=== PATIENT | female | born 1935 | race Caucasian/White ===

== ENCOUNTER 2017-03-13 12:27 | Inpatient (IN) | payer MEDICARE ==
[2017-03-13 13:38] LABS: #Eosinphils 0.2 thou/uL (0.0-0.7); #Lymphocytes 0.9 thou/uL (1.20-3.40); #Monocytes 0.8 thou/uL (0.11-0.59); #Neutrophils 5.8 thou/uL (1.40-6.50); %Basophils 0.6 % (0.0-1.0); %Eosinophils 2.1 % (0.0-10.0); %Lymphocytes 11.2 % (21.0-51.0); %Monocytes 10.6 % (0.0-10.0); Hematocrit 26.2 % (36.0-47.0); Mean Platelet Volume 6.5 fL (7.4-10.4); Red Blood Cell (RBC) Count 3.16 mill/uL (4.20-5.40); White Blood Cell (WBC) Count 7.7 thou/uL (4.8-10.8)
[2017-03-13] MEDS ORDERED: Iopamidol 370 76% 100 ML VIAL ONE (13:54)
[2017-03-13 14:02] LABS: ALT (SGPT) 22 U/L (8-55); AST (SGOT) 28 U/L (5-34); Alkaline Phosphatase 58 U/L (40-150); Anion Gap 11 mmol/L (10-20); BUN (Urea Nitrogen) 18 mg/dL (9.8-20.1); Bilirubin, Total 0.3 mg/dL (0.2-1.2); CK (CPK) 29 U/L (29-168); Calc. Creatinine Clearance 0 mL/min (70-130); Calcium 8.7 mg/dL (7.8-10.44); Carbon Dioxide 28 mmol/L (23-31); Chloride 96 mmol/L (98-107); Estimated GFR-MDRD 79; Globulin 3.3 g/dL (2.4-3.5); Lipase 23 U/L (8-78); Protein, Total 6.8 g/dL (6.0-8.3)
[2017-03-13 14:06] LABS: Troponin I 0.082 ng/mL (< 0.028)
--- NOTE | 2017-03-13 14:43 | CT ---
CT ANGIOGRAM THORAX WITH IV CONTRAST AND 3D RECONSTRUCTIONS: CT ANGIOGRAM ABDOMEN WITH IV CONTRAST AND 3D RECONSTRUCTIONS: 03/13/2017 HISTORY: Back pain and shortness of breath. The patient has pain beneath each scapula since Thursday. The pain is intermittent. COMPARISON: None available. FINDINGS: The lung apices are excluded from view utilizing this protocol. Scattered linear densities are pres ent, likely related to areas of atelectasis. There is interstitial thickening present at each lung base, with associated ground glass densities, which could be related to an element of mild pulmonary edema. The heart is enlarged, with dilatation of the atria bilaterally. A multi-lead left subclavian AICD device is noted in place. Minimal vascular calcifications are seen in the thoracic aorta with a greater degree of atherosclero tic calcification and plaque within the abdominal aorta and the iliac arteries; however, the thoraci c and abdominal aorta are normal in caliber without evidence of an aortic dissection. There is a nor mal arrangement of the great vessels, which are patent. There are severe degrees of narrowing involving the origin of the celiac and most proximal superior mesenteric arteries. The origin of the BRUNO is obscured due to atherosclerotic plaque. There is mild atherosclerotic irregularity involving the left renal artery with what appears to be a beaded appearance of the most distal aspect of the left renal artery. While this can be seen in fi bromuscular dysplasia, this may also be attributable to atherosclerotic plaque. The origin of the r ight renal artery is obscured due to dense vascular calcifications but is otherwise patent with mild degrees of atherosclerotic disease. There is irregular atherosclerotic plaque involving the infrarenal abdominal aorta, with a focal are a posteriorly at the level of the L4 vertebral body. The common iliac arteries are patent. There is a slightly lobulated contour of the liver, which can be seen with cirrhosis. The left hepa tic lobe is much larger in size compared to the right hepatic lobe. There is a calculus within the gallbladder lumen, and the gallbladder is decompressed. There are areas of what appear to be cortical scarring involving each kidney. There is a fluid dens ity inferior pole cystic lesion, left kidney, consistent with a cyst, which measures 1.9 cm. The spleen, pancreas, and bilateral adrenal glands demonstrate a normal CT appearance. There is a moderate amount of retained fecal material in the region of the ascending colon. Multilevel degenerative changes are seen in the thoracic and lumbar spine with right convex scoliosi s of the lumbar spine. There is calcification of multiple intervertebral disks involving the thorac ic, as well as the lumbar spine. No filling defects are seen in the pulmonary arteries to suggest a pulmonary embolus. There are small right and tiny left pleural effusions with associated atelectasis. IMPRESSION: 1. No CT evidence of thoracic or abdominal aortic dissection or aneurysm; however, there is promine nt atherosclerotic plaque seen within the abdominal aorta, with an area of atherosclerotic irregular ity involving the posterior aspect of the infrarenal abdominal aorta, at the level of the L4 vertebr al body, probably related to irregular atherosclerotic plaque as opposed to penetrating atheromatous ulcer. 2. No CT evidence of a pulmonary embolus. 3. Cardiomegaly with dilatation of each atrium. 4. Small right and tiny left pleural effusions. 5. Nodular contour of the right hepatic lobe, which can be seen with cirrhosis. In addition, the l eft hepatic lobe appears larger in size than the right. 6. Left renal cyst with areas of mild scarring in each kidney. 7. Severe degrees of narrowing involving the origin of the celiac and the proximal superior mesente angelo arteries. The origin of the inferior mesenteric artery is not well seen. POS: WILLIAM
[2017-03-13 14:54] LABS: Digoxin 1.61 ng/mL (0.8-2.0)
[2017-03-13] MEDS ORDERED: Nitroglycerin 2% Ointment 1 INCH/1 GM Packet ONE (15:29)
[2017-03-13] MEDS ORDERED: Nitroglycerin 0.4 MG TAB (25 Tab Bottle) PO PRN (16:15)
[2017-03-13] MEDS ORDERED: Acetaminophen 325 MG TAB PO PRN (16:17)
[2017-03-13] MEDS ORDERED: Senokot 8.6 MG TAB PO PRN (16:17)
[2017-03-13] MEDS ORDERED: Calcium Carbonate 500 MG ChewTAB PO PRN (16:17)
--- NOTE | 2017-03-13 17:08 | HP ---
DATE OF ADMISSION: 03/13/2017 PRIMARY CARE PHYSICIAN: Shivam Martinez M.D. PRIMARY INDIAN NANNY: Les Jacob M.D. CHIEF COMPLAINT: Pain between scapula of 1 day duration. HISTORY OF PRESENT ILLNESS: The patient is an 81-year-old female with coronary artery disease, stat us post stent, chronic systolic heart failure, ejection fraction 30%-35%, status post AICD, hyperten kenia, dyslipidemia, and coronary artery bypass grafting in the past, presented to the emergency room with above complaints. Over the last two days, the patient has been feeling generally weak along with dyspnea on mild to mo derate exertion. She has intermittent pain between her scapula along with some tingling mainly on t he left. She felt lightheaded, dizzy; however, denies any passing out. No palpitations reported. The pain was moderate in intensity without any exacerbation or relieving factor. She denies recent mobilization and travel. She is compliant with her medications including anticoagulation for AFIB. No heartburn, fever, or chills reported. In the emergency room, her initial vital signs showed temperature 98.8, pulse rate of 83, respiratio n 18, blood pressure 154/80 with O2 saturation 95% on room air. Her initial EKG showed paced rhythm . Her initial troponin was 0.082 with normal CK-MB. Her CT dissection protocol was performed that showed atherosclerotic arthrosclerosis without any dissection or aneurysm. PAST MEDICAL HISTORY: 1. Chronic systolic heart failure, ejection fraction 30%-35%, status post AICD. 2. Coronary artery disease, status post stent and CABG. 3. Hypertension. 4. Dyslipidemia. 5. Chronic atrial fibrillation. PAST SURGICAL HISTORY: 1. Tonsillectomy. 2. Coronary artery bypass grafting. ALLERGIES: Patient is allergic to CIPROFLOXACIN, LISINOPRIL, and NAPROXEN. CURRENT HOME MEDICATIONS: According to the list provided; Xarelto 20 mg daily at 6 p.m., Coreg 6.25 mg b.i.d., Bumex 2 mg at 3 p.m., digoxin 125 mcg daily, amiodarone 200 mg daily, potassium chloride 10 mEq daily, coenzyme Q10 200 mg daily, pravastatin 40 at bedtime, Zetia 10 mg at bedtime, levothy roxine 50 mcg daily, valsartan which was started [address] Cecil at 40 mg at bedtime. FAMILY HISTORY: Positive for heart disease in young age. SOCIAL HISTORY: She is , lives with her family. Denies any current use of tobacco, alcohol or drug use. REVIEW OF SYSTEMS: The following complete review of systems was negative, unless otherwise mentione d in the HPI or below: Constitutional: Weight loss or gain, ability to conduct usual activities. Skin: Rash, itching. Eyes: Double vision, pain. ENT/Mouth: Nose bleeding, neck stiffness, pain, tenderness. Cardiovascular: Palpitations, dyspnea on exertion, orthopnea. Respiratory: Shortness of breath, wheezing, cough, hemoptysis, fever or night sweats. Gastrointestinal: Poor appetite, abdominal pain, heartburn, nausea, vomiting, constipation, or diar jamia. Genitourinary: Urgency, frequency, dysuria, nocturia. Musculoskeletal: Pain, swelling. Neurologic/Psychiatric: Anxiety, depression. Allergy/Immunologic: Skin rash, bleeding tendency. PHYSICAL EXAMINATION: VITAL SIGNS: As discussed above. GENERAL: An 81-year-old female in no apparent distress. HEENT: Head is atraumatic, normocephalic. Sclerae are anicteric. Moist mucous membrane, no oral l esion. NECK: Supple, no JVD, no carotid bruit. LUNGS: Clear to auscultation bilaterally. No wheezing or rales. There was no reproducible tendern ess between her scapula. HEART: S1 and S2 present. Regular rate and rhythm. No murmurs, rubs or gallops. ABDOMEN: Soft, nontender, bowel sounds present. EXTREMITIES: No edema or calf tenderness. NEUROLOGIC: Grossly nonfocal, moves all four extremities. PSYCHIATRY: Alert, awake, oriented x3. SKIN: Warm and dry. LYMPH NODES: No palpable lymph nodes in the neck. PERIPHERAL VASCULAR: Radial pulses palpable bilaterally. MUSCULOSKELETAL: No joint swelling or tenderness. LABORATORY DATA AND IMAGIN. Troponins as discussed above. Digoxin level 1.61. Sodium was 131, BUN was 18, and creatinine 0 .71. 2. CBC showed WBC 7.7 with hemoglobin 8. Her hemoglobin in [address] dissection protocol by my review as discussed above. 4. EKG by my review as discussed above. IMPRESSION: 1. Chest discomfort/anginal equivalent. The patient had dyspnea on mild to moderate exertion yeste rday. She also has abnormal troponins. She has history of myocardial infarction, coronary bypass a nd stent placed in the past. We will monitor the patient overnight. Cardiology will be consulted. She will be kept n.p.o. past midnight. 2. Chronic atrial fibrillation. Anticoagulation will be resumed. Digoxin level is therapeutic. W e will continue beta blockers and digoxin for rate control. 3. Coronary artery disease, status post coronary artery bypass graft and stent placement. 4. Chronic systolic heart failure, ejection fraction 30%-35% range, status post automatic implantab le cardioverter defibrillator. We will continue beta blockers, losartan. 5. Hypothyroidism. We will continue levothyroxine. 6. SAW INHIBITOR allergy. 7. Anemia. It is unclear what her baseline is. Primary care physician advised to follow. 8. Hyponatremia. Again, baseline labs are unclear. Primary care physician advised to follow proba paul secondary to diuretics. 9. Elevated troponins, probably secondary to #1. 10. Degenerative joint disease. 11. Hyperlipidemia. We will continue statins. Plan of care was discussed with the patient. She stated understanding. CODE STATUS: FULL CODE. SURROGATE DECISION MAKER: The patient makes her own decisions.
[2017-03-13 17:18] VITALS: BMI 19.9
[2017-03-13] MEDS ORDERED: hydrALAZINE 20 MG/ML VIAL SLOW IVP PRN (17:49)
[2017-03-13] MEDS ORDERED: Rivaroxaban 10 MG TAB PO SCH (18:00)
[2017-03-13 20:13] LABS: Troponin I 0.095 ng/mL (< 0.028)
[2017-03-13] MEDS ORDERED: Ubidecarenone 50 MG CAP PO SCH (21:00)
[2017-03-13] MEDS: Atorvastatin Calcium 10 MG TAB PO SCH (22:52)
[2017-03-13] MEDS: Carvedilol 6.25 MG TAB PO SCH (22:54)
[2017-03-13] MEDS: Famotidine 20 MG TAB PO SCH (22:56)
[2017-03-13] MEDS: Ezetimibe 10 MG TAB PO SCH (22:56)
[2017-03-13] MEDS: Valsartan 80 MG TAB PO SCH (22:58)
[2017-03-14] MEDS ORDERED: diphenhydrAMINE 25 MG CAP PO SCH (02:00)
[2017-03-14] MEDS: Levothyroxine Sodium 50 MCG TAB PO SCH (05:20)
[2017-03-14] MEDS: Digoxin 0.125 MG TAB PO SCH (09:25)
[2017-03-14] MEDS: Carvedilol 6.25 MG TAB PO SCH ×2 (09:25→21:36)
[2017-03-14] MEDS: Aspirin 81 mg Enteric Coated Tablet PO SCH (09:25)
[2017-03-14] MEDS: Ubidecarenone 50 MG CAP PO SCH (09:25)
[2017-03-14] MEDS: Famotidine 20 MG TAB PO SCH ×2 (09:26→21:36)
--- NOTE | 2017-03-14 10:50 | PDOC.PN ---
- Subjective Encounter Start Date: 03/14/17 Encounter Start Time: 07:45 Subjective: no chest pain or sob at rest -: has exertional sob - Objective Resuscitation Status: Resuscitation Status FULL:Full Resuscitation MAR Reviewed: Yes Vital Signs & Weight: Vital Signs (12 hours) Temp Pulse Resp BP BP Pulse Ox 03/14/17 09:25 74 124/58 L 03/14/17 08:00 99.0 F 74 18 03/14/17 07:23 99.0 F 74 18 124/58 L 92 L 03/14/17 04:10 99.8 F H 64 16 109/53 L 92 L 03/13/17 23:13 99.3 F 61 18 114/53 L 94 L 03/13/17 22:56 99.3 F 61 18 Weight Weight 119 lb 11.2 oz I&O: 03/13/17 03/14/17 03/15/17 06:59 06:59 06:59 Intake Total 1170 Output Total 1600 Balance -430 Result Diagrams: 03/13/17 13:29 03/13/17 13:29 Phys Exam - Physical Examination HEENT: PERRLA, moist MMs Neck: no JVD, supple Respiratory: no wheezing basal rales Cardiovascular: RRR, no rub Gastrointestinal: soft, non-tender, positive bowel sounds Musculoskeletal: no edema, pulses present Neurological: non-focal, moves all 4 limbs Psychiatric: A&O x 3 Dx/Plan (1) CHF exacerbation Code(s): I50.9 - HEART FAILURE, UNSPECIFIED Status: Acute Comment: await echo results done on from office (2) Demand ischemia of myocardium Code(s): I24.8 - OTHER FORMS OF ACUTE ISCHEMIC HEART DISEASE Status: Acute (3) CAD (coronary artery disease) Code(s): I25.10 - ATHSCL HEART DISEASE OF [place] CORONARY ARTERY W/O ANG PCTRS Status: Chronic Qualifiers: Coronary Disease-Associated Artery/Lesion type: bypass graft [place] vs. transplanted heart: [place] heart Associated angina: without angina Qualified Code(s): I25.810 - Atherosclerosis of coronary artery bypass graft(s) without angina pectoris (4) HTN (hypertension) Code(s): I10 - ESSENTIAL (PRIMARY) HYPERTENSION Status: Chronic Qualifiers: Hypertension type: essential hypertension Qualified Code(s): I10 - Essential (primary) hypertension (5) Dyslipidemia Code(s): E78.5 - HYPERLIPIDEMIA, UNSPECIFIED Status: Chronic (6) Afib Code(s): I48.91 - UNSPECIFIED ATRIAL FIBRILLATION Status: Chronic (7) Chronic anemia Code(s): D64.9 - ANEMIA, UNSPECIFIED Status: Chronic - Plan will need gentle diuresis -: switch pt to inpt if ok with -: is on xarelto with Hb of 8g, add feso4 -: dig levels are high for her age, await cardio opinion -: indet trop likely due to chf exacerbation with exertional sob * . Review of Systems - Medications/Allergies Allergies/Adverse Reactions: Allergies Allergy/AdvReac Type Severity Reaction Status Date / Time ciprofloxacin [From Cipro] Allergy Verified 02/07/13 08:17 lisinopril Allergy Verified 10/27/13 14:33 naproxen [From Naprosyn] Allergy Verified 10/27/13 14:33 Medications: Current Medications Acetaminophen (Tylenol) 650 mg PO Q4H PRN PRN Reason: Headache/Fever or Pain Amiodarone HCl (Cordarone) 200 mg PO DAILY [facility] Last Admin: 03/14/17 09:24 Dose: 200 mg Aspirin (Ecotrin) 81 mg PO DAILY [facility] Last Admin: 03/14/17 09:25 Dose: 81 mg Atorvastatin Calcium (Lipitor) 10 mg PO HS [facility] Last Admin: 03/13/17 22:52 Dose: Not Given Bumetanide (Bumex) 1 mg PO 1400 [facility] Calcium Carbonate (Tums) 1,000 mg PO Q4H PRN PRN Reason: Heartburn or Indigestion Carvedilol (Coreg) 6.25 mg PO BID [facility] Last Admin: 03/14/17 09:25 Dose: 6.25 mg Coenzyme Q10 (Coenzyme Q10) 200 mg PO QAM [facility] Last Admin: 03/14/17 09:25 Dose: 200 mg Digoxin (Lanoxin) 0.125 mg PO DAILY [facility] Last Admin: 03/14/17 09:25 Dose: 0.125 mg Ezetimibe (Zetia) 10 mg PO HS [facility] Last Admin: 03/13/17 22:56 Dose: 10 mg Famotidine (Pepcid) 20 mg PO BID [facility] Last Admin: 03/14/17 09:26 Dose: 20 mg Hydralazine HCl (Apresoline) 5 mg SLOW IVP Q4H PRN PRN Reason: SBP Greater Than 180 Levothyroxine Sodium (Synthroid) 50 mcg PO 0600 [facility] Last Admin: 03/14/17 05:20 Dose: 50 mcg Nitroglycerin (Nitrostat) 0.4 mg PO Q5MIN PRN PRN Reason: Chest Pain Senna (Senokot) 2 tab PO HSPRN PRN PRN Reason: Constipation Sodium Chloride (Flush - Normal Saline) 10 ml IVF PRN PRN PRN Reason: Saline Flush Valsartan (Diovan) 40 mg PO HS [facility] Last Admin: 03/13/17 22:58 Dose: 40 mg
[2017-03-14] MEDS ORDERED: Furosemide 40 MG/4 ML VIAL SLOW IVP SCH (13:30)
--- NOTE | 2017-03-14 14:12 | CON ---
DATE OF CONSULTATION: 03/14/2017 CARDIOLOGY CONSULTATION REASON FOR CONSULTATION: Chest pain. PRIMARY MARKETING DATABASE ANALYST: Les Jacob M.D. HISTORY OF PRESENT ILLNESS: Ms. Agudelo is a very pleasant 81-year-old black female who comes to [facility] for evaluation of chest pain. She was actually going to a football game here in [facility] where she is from and she just felt tired and really weak. She suddenly started having pain in between her scapulas. She took one dose of ibuprofen. The pain got a little bit better, n ever really went away and the next afternoon, she went back to her house and kept feeling really tir ed and weak, so decided to call 911 who brought her into the hospital for further evaluation. Her t roponins have been in the indeterminate range. Her pain is completely gone. She does have a histor y of coronary disease with bypass in the past and recent stenting. She is currently doing much bett er. She denies any chest pain at that time. Her breathing, she states, is better; however, she has a little bit harder time breathing when she lays flat on her back, but not really significant when she is on room air, her sats go from 96, sitting up to 93 and 92 lying flat. Her blood pressure whe n EMS got to her was 200/98, but it since gotten much better. A recent echocardiogram in the office shows an EF of 45%-50%. PAST MEDICAL HISTORY: 1. Ischemic cardiomyopathy with an EF of 45-50%. 2. Status post AICD. 3. Coronary artery disease status post bypass and stenting in the past. 4. Hypertension. 5. Hyperlipidemia. 6. Chronic atrial fibrillation. PAST SURGICAL HISTORY: 1. Tonsillectomy. 2. Coronary artery bypass grafting as above. 3. Stent placement as above. OUTPATIENT MEDICATIONS: Include, 1. Xarelto 20 mg a day. 2. Coreg 6.25 mg b.i.d. 3. Bumex 2 mg in the afternoon. 4. Digoxin 125 mcg a day. 5. Amiodarone 200 mg. 6. Potassium chloride 10 mEq a day. 7. Coenzyme Q10. 8. Pravastatin 40 mg a day. 9. Zetia 10 mg a day. 10. Levothyroxine 50 mcg a day. 11. Valsartan 40 mg at bedtime. FAMILY HISTORY: Heart disease on family members. SOCIAL HISTORY: No alcohol, tobacco or drugs. REVIEW OF SYSTEMS: Twelve point review of systems was done and is all negative unless stated in the history of present illness. ALLERGIES: CIPRO, LISINOPRIL, and NAPROXEN. PHYSICAL EXAMINATION: VITAL SIGNS: Temperature 99, pulse 64, respiration rate 16, satting 91% on room air, and blood pres sure 121/60. GENERAL: Awake, alert, oriented x3, in no distress. HEENT: Normocephalic, atraumatic. NECK: Supple. LUNGS: Clear. CARDIOVASCULAR: S1, S2, no S3 or S4. HEART: Regular. ABDOMEN: Soft, positive bowel sounds. EXTREMITIES: No edema. SKIN: Warm and dry. LABORATORY WORK: Reviewed. White count of 7, hemoglobin of 8, hematocrit of 26, platelet count of 193. Chemistries: Sodium 131, potassium is 4.4, BUN and creatinine are normal. Troponin was 0.08, 0.10, 0.09 with a BNP of 1749, lipase of 23, albumin of 3.5. Digoxin level was 1.61. CT per dissection protocol showed no evidence of dissection. There was some atherosclerotic plaque in the aorta and there was some pleural effusions. No evidence of PE. EKG shows AV paced rhythm. ASSESSMENT AND PLAN: 1. Acute on chronic systolic heart failure. She is probably in little bit of heart failure with th e weakness and her increased work to breathe when lying flat, so we will give one dose of IV Lasix f or this is probably going to be enough. She is comfortable on room air. 2. Chest pain, actually interscapular pain. We will screen for ischemia with a nuclear MPI. Adeno sine scan to be done. 3. Coronary artery disease. No evidence of acute coronary syndrome. Her troponins are in the inde terminate range. As above. Thank you for letting us to participate in the care of your patient. Further recommendations per marlene means of stress test.
[2017-03-14] MEDS ORDERED: ADENOSINE 60 MG/20 ML VIAL ONE (15:53)
[2017-03-14] MEDS: Ferrous Sulfate 325 MG TAB PO SCH (16:35)
[2017-03-14] MEDS: Bumetanide 1 MG TAB PO SCH (16:35)
--- NOTE | 2017-03-14 16:46 | NM ---
MYOCARDIAL PERFUSION SCAN WITH SPECT IMAGIN03/14/17 HISTORY: Chest pain. Examination is performed using 28.5 millicuries 99m technetium Sestamibi on the stress and 9.4 danis curies on the resting images. This shows a normal distribution of the radiopharmaceutical without si gns of ischemia or scar. WALL MOTION: There is symmetric contractility to the ventricle. LEFT VENTRICULAR EJECTION FRACTION: The calculated left ventricular ejection fraction is 72%. IMPRESSION: Unremarkable myocardial perfusion scan. POS: WILLIAM
[2017-03-14] MEDS: Valsartan 80 MG TAB PO SCH (21:37)
[2017-03-14] MEDS: Ezetimibe 10 MG TAB PO SCH (21:37)
[2017-03-14] MEDS: Atorvastatin Calcium 10 MG TAB PO SCH (21:37)
[2017-03-15] MEDS: Levothyroxine Sodium 50 MCG TAB PO SCH (05:46)
[2017-03-15 07:58] LABS: #Basophils 0.1 thou/uL (0.0-0.2); #Eosinphils 0.1 thou/uL (0.0-0.7); #Lymphocytes 1.2 thou/uL (1.20-3.40); #Neutrophils 5.6 thou/uL (1.40-6.50); %Basophils 0.6 % (0.0-1.0); %Eosinophils 1.4 % (0.0-10.0); %Lymphocytes 15.4 % (21.0-51.0); %Monocytes 12.7 % (0.0-10.0); Hematocrit 24.6 % (36.0-47.0); Mean Platelet Volume 6.8 fL (7.4-10.4); Red Blood Cell (RBC) Count 2.99 mill/uL (4.20-5.40); White Blood Cell (WBC) Count 8.1 thou/uL (4.8-10.8)
[2017-03-15] MEDS ORDERED: Furosemide 20 MG/2 ML VIAL SLOW IVP SCH (08:00)
[2017-03-15 08:14] LABS: Anion Gap 10 mmol/L (10-20); BUN (Urea Nitrogen) 19 mg/dL (9.8-20.1); Calc. Creatinine Clearance 42 mL/min (70-130); Calcium 8.2 mg/dL (7.8-10.44); Carbon Dioxide 29 mmol/L (23-31); Chloride 100 mmol/L (98-107); Estimated GFR-MDRD 68
[2017-03-15] MEDS: Potassium Chloride 20 MEQ TAB PO SCH ×2 (09:08→17:02)
[2017-03-15] MEDS: Carvedilol 6.25 MG TAB PO SCH ×2 (09:08→20:57)
[2017-03-15] MEDS: Aspirin 81 mg Enteric Coated Tablet PO SCH (09:08)
[2017-03-15] MEDS: Ferrous Sulfate 325 MG TAB PO SCH ×2 (09:08→17:02)
[2017-03-15] MEDS: Ubidecarenone 50 MG CAP PO SCH (09:09)
[2017-03-15] MEDS: Digoxin 0.125 MG TAB PO SCH (09:09)
[2017-03-15] MEDS: Famotidine 20 MG TAB PO SCH ×2 (09:10→20:57)
--- NOTE | 2017-03-15 10:05 | PDOC.PN ---
- Subjective Encounter Start Date: 03/15/17 Encounter Start Time: 09:15 Subjective: no chest pain or sob -: feels better after lasix - Objective Resuscitation Status: Resuscitation Status FULL:Full Resuscitation MAR Reviewed: Yes Vital Signs & Weight: Vital Signs (12 hours) Temp Pulse Resp BP BP Pulse Ox 03/15/17 09:09 62 03/15/17 09:08 145/67 H 03/15/17 08:07 98.5 F 62 16 145/67 H 95 03/15/17 04:00 97.8 F 72 16 126/59 L 92 L Weight Weight 112 lb 5 oz I&O: 03/14/17 03/15/17 03/16/17 06:59 06:59 06:59 Intake Total 1170 1440 Output Total 1600 350 Balance -430 1090 Result Diagrams: 03/15/17 07:27 03/15/17 07:27 Phys Exam - Physical Examination HEENT: PERRLA, moist MMs Neck: no JVD, supple Respiratory: no wheezing, no rales Cardiovascular: RRR, no significant murmur Gastrointestinal: soft, non-tender, positive bowel sounds Musculoskeletal: no edema, pulses present Neurological: non-focal, moves all 4 limbs Psychiatric: A&O x 3 Dx/Plan (1) CHF exacerbation Code(s): I50.9 - HEART FAILURE, UNSPECIFIED Status: Acute Comment: ef of 45 % on last echo 02/2017 (2) Demand ischemia of myocardium Code(s): I24.8 - OTHER FORMS OF ACUTE ISCHEMIC HEART DISEASE Status: Acute (3) CAD (coronary artery disease) Code(s): I25.10 - ATHSCL HEART DISEASE OF [place] CORONARY ARTERY W/O ANG PCTRS Status: Chronic Qualifiers: Coronary Disease-Associated Artery/Lesion type: bypass graft [place] vs. transplanted heart: [place] heart Associated angina: without angina Qualified Code(s): I25.810 - Atherosclerosis of coronary artery bypass graft(s) without angina pectoris (4) HTN (hypertension) Code(s): I10 - ESSENTIAL (PRIMARY) HYPERTENSION Status: Chronic Qualifiers: Hypertension type: essential hypertension Qualified Code(s): I10 - Essential (primary) hypertension (5) Dyslipidemia Code(s): E78.5 - HYPERLIPIDEMIA, UNSPECIFIED Status: Chronic (6) Afib Code(s): I48.91 - UNSPECIFIED ATRIAL FIBRILLATION Status: Chronic (7) Chronic anemia Code(s): D64.9 - ANEMIA, UNSPECIFIED Status: Chronic - Plan stress test is -ve for reversible ischemia -: gentle diuresis -: dc plan in am -: she will need outpt GI appt with Hb around 8 and being on xarelto -: to amb as tolerated * . Review of Systems - Medications/Allergies Allergies/Adverse Reactions: Allergies Allergy/AdvReac Type Severity Reaction Status Date / Time ciprofloxacin [From Cipro] Allergy Verified 02/07/13 08:17 lisinopril Allergy Verified 10/27/13 14:33 naproxen [From Naprosyn] Allergy Verified 10/27/13 14:33 Medications: Current Medications Acetaminophen (Tylenol) 650 mg PO Q4H PRN PRN Reason: Headache/Fever or Pain Amiodarone HCl (Cordarone) 200 mg PO DAILY [facility] Last Admin: 03/15/17 09:09 Dose: 200 mg Aspirin (Ecotrin) 81 mg PO DAILY [facility] Last Admin: 03/15/17 09:08 Dose: 81 mg Atorvastatin Calcium (Lipitor) 10 mg PO HS [facility] Last Admin: 03/14/17 21:37 Dose: 10 mg Bumetanide (Bumex) 1 mg PO 1400 [facility] Last Admin: 03/14/17 16:35 Dose: 1 mg Calcium Carbonate (Tums) 1,000 mg PO Q4H PRN PRN Reason: Heartburn or Indigestion Carvedilol (Coreg) 6.25 mg PO BID [facility] Last Admin: 03/15/17 09:08 Dose: 6.25 mg Coenzyme Q10 (Coenzyme Q10) 200 mg PO QAM [facility] Last Admin: 03/15/17 09:09 Dose: 200 mg Digoxin (Lanoxin) 0.125 mg PO DAILY [facility] Last Admin: 03/15/17 09:09 Dose: 0.125 mg Ezetimibe (Zetia) 10 mg PO HS [facility] Last Admin: 03/14/17 21:37 Dose: 10 mg Famotidine (Pepcid) 20 mg PO BID [facility] Last Admin: 03/15/17 09:10 Dose: 20 mg Ferrous Sulfate (Feosol) 325 mg PO BID[facility] Last Admin: 03/15/17 09:08 Dose: 325 mg Hydralazine HCl (Apresoline) 5 mg SLOW IVP Q4H PRN PRN Reason: SBP Greater Than 180 Levothyroxine Sodium (Synthroid) 50 mcg PO 0600 [facility] Last Admin: 03/15/17 05:46 Dose: 50 mcg Nitroglycerin (Nitrostat) 0.4 mg PO Q5MIN PRN PRN Reason: Chest Pain Potassium Chloride (K-Dur) 40 meq PO BID-[facility] Last Admin: 03/15/17 09:08 Dose: 40 meq Senna (Senokot) 2 tab PO HSPRN PRN PRN Reason: Constipation Sodium Chloride (Flush - Normal Saline) 10 ml IVF PRN PRN PRN Reason: Saline Flush Valsartan (Diovan) [address] [facility] Last Admin: 03/14/17 21:37 Dose: 40 mg
[2017-03-15] MEDS: Bumetanide 1 MG TAB PO SCH (13:54)
--- NOTE | 2017-03-15 17:28 | PDOC.CTH ---
Cardiology Progress Note - Subjective She is doing well. Her breathing is back to baseline. - Objective Vital Signs Temp Pulse Resp BP BP Pulse Ox 03/15/17 15:05 97.5 F L 63 24 H 117/52 L 97 03/15/17 12:00 99.0 F 65 24 H 148/63 H 95 03/15/17 09:09 62 03/15/17 09:08 145/67 H 03/15/17 08:07 99.0 F 65 24 H 145/67 H 95 Weight 112 lb 5 oz 03/14/17 03/15/17 03/16/17 06:59 06:59 06:59 Intake Total 1170 1440 Output Total 1600 350 Balance -430 1090 - Physical Examination General/Neuro: alert & oriented x3, NAD Neck: no JVD present Lungs: CTA, unlabored respirations Heart: RRR Abdomen: NT/ND Extremities: other: (no edema.) - Telemetry Telemetry Rhythm: AV paced. - Labs Result Diagrams: 03/15/17 07:27 03/15/17 07:27 Troponin/CKMB CK-MB (CK-2) 1.5 ng/mL (0-6.6) 03/13/17 13:29 Troponin I 0.095 ng/mL (< 0.028) H 03/13/17 19:34 - Assessment/Plan 1. Acute on chronic systolic heart failure. improved. 2. Chest pain 3. CAD. PLAN: - Normal MPI, normal LV function. - No new recs. - Home tomorrow.
[2017-03-15] MEDS: Ezetimibe 10 MG TAB PO SCH (20:57)
[2017-03-15] MEDS: Valsartan 80 MG TAB PO SCH (20:57)
[2017-03-15] MEDS: Atorvastatin Calcium 10 MG TAB PO SCH (20:57)
--- NOTE | 2017-03-15 23:43 | CON ---
DATE OF CONSULTATION: 03/15/2017 REFERRING PHYSICIAN: Wilfrido Salazar M.D. REASON FOR CONSULTATION: Anemia with a drop in H\T\H. HISTORY OF PRESENT ILLNESS: Ms. Kalie Agudelo is a very fragile-looking 81-year-old fem kapil admitted to the hospital with pain between the shoulder blade area. She has been seen by Dr. Hallie green since admission and he felt she has mild heart failure and was advised to try IV Lasix. At the present time, she appears very comfortable. 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 The patient had been seeing Dr. Jacob for 20 years or so. The patient's re [facility] doctor is in [place]. The patient came to the ER because of pain between the shou lder blade area. Apparently, she has had the pain off and on for several months or even years. The pain got worse yesterday and she came to the ER. She had a chest CAT scan to rule out any dissecti on, which was negative. The patient's symptoms have resolved. She had no pain between the shoulder blade area. She has multiple symptoms which are somewhat difficult to interpret. She has had this burning pain to scalp area and also over the back off and on. She has seen a tactical air control party in the past and was of advised some shampoo, did not help her. The patient also complains of pain over the shoulder blade area and both . The patient's admitting hemoglobin is slightly low. The CBC o n admission showed WBC 7700, hemoglobin is 8, which is slightly dropped to 7.8 today, hematocrit 26 .2, dropping to 24.6. Going over the [employer] from before, the patient has had mild anemia in the p ast also. A CBC in 02/10/2013 showed hemoglobin at 10.2 and later on dropping to 9.5. In 2013, it was back to normal at 13.4; today, it is about 7.8. Although she has anemia since admission, she baxter s no history of any GI bleeding. Her bowel movements are regular. No history of hematochezia or an y melena. No history of nosebleed, no history of hematuria or any bleeding from the gums, etc. She had never been told of anemia from before. The patient had a colonoscopy in 04/2016 in [place]. he was told to have hemorrhoids and nothing else was wrong. The patient never had an EGD. However, she had no upper GI symptoms. She has no significant abdominal pain, nausea, or vomiting, no dysph agia, no heartburn or indigestion. She has no other relevant history. MEDICAL ILLNESSES: 1. Coronary artery disease, status post stent placement. 2. Coronary artery bypass graft. 3. Status post AICD placement. 4. Ischemic cardiomyopathy, systolic heart failure with an ejection fraction of 30%-35%. 5. Hypertension. 6. Hyperlipidemia. 7. Chronic atrial fibrillation. SURGERIES: 1. Tonsillectomy. 2. Coronary artery bypass graft. 3. Stent placement. ALLERGIES: CIPRO, LISINOPRIL, and NAPROXEN. SOCIAL HISTORY: The patient is a retired nurse. She is . She does not smoke or drink alcoh ol. FAMILY HISTORY: Heart disease. MEDICATIONS: List reviewed. Xarelto, Coreg, Bumex. She is also on digoxin, amiodarone, potassium chloride, coenzyme, pravastatin, Zetia, levothyroxine, valsartan. REVIEW OF SYSTEMS: A 10-point system reviewed. Constitutional: No history of fever. No weight lo ss. Energy level and appetite have been pretty good. ORTHODONTIST [employer]: No history of TIA, no syncope, no chron ic headache. Respiratory System: No history of chronic cough, hemoptysis, dyspnea. Cardiovascular System: No chest pain, no palpitation, no dyspnea, orthopnea, or PND. Gastrointestinal: No abdom inal pain, no nausea, no vomiting, no hematochezia, no melena, no dysphagia. Genitourinary: No hem aturia or dysuria. Musculoskeletal: Has some back pain and also pain in the extremities. Neuroend ocrine: Unremarkable. Hematologic: Unremarkable. Neuropsychiatry: Unremarkable. PHYSICAL EXAMINATION: GENERAL: Revealed a very thin built female, appears very comfortable. She is awake, aler t, oriented to time, place, and person. HEENT: Her conjunctivae are clear. VITAL SIGNS: Temperature 98.5 degrees Fahrenheit, pulse is 62, blood pressure 143/67. NECK: Supple. No adenitis or thyromegaly noted. CARDIOVASCULAR: First and second heart sounds are normal. LUNGS: Clear to auscultation. ABDOMEN: Soft to palpate. No organomegaly. No tenderness. No masses. EXTREMITIES: Reveal no edema. LABORATORY DATA: Yesterday, WBC 7700, hemoglobin 8, today 7.2, which is a very small drop, hematocr it 26.2, dropping to 24.6, MCV 82.4, platelet 199,000, polymorphs 69, lymphocytes 15. Her last hemo globin on the [facility] on 10/28/2013 was completely normal with normal hemoglobin and hematocrit. [facility] chemistries: Sodium 135, potassium 3.7, chloride 100, bicarbonate 29, BUN is 19, creatinine 0. 81, glucose is 98, bilirubin 0.3, AST 28, ALT 22, alkaline phosphatase 58, globulin 3.3. CPK is 29. CLINICAL IMPRESSION: 1. An 81-year-old female with pain over the shoulder blade area and had negative CAT scan for aortic dissection. She has been seen by Dr. Christopher and he felt she was in early heart failure. At the present time, her symptoms are normal. 2. Anemia which is normocytic and etiology unclear. She has normal hemoglobin and hematocrit in 20 14. No history of any GI bleeding. She had a colonoscopy in [place] on 05/20/2016 and was totally normal. The anemia is likely normocytic. She has no history of hematochezia, melena, or hematuria. 3. Ischemic cardiomyopathy, congestive heart failure. 4. Status post AICD placement. 5. Hypertension. 6. Hyperlipidemia. 7. Hypothyroidism. 8. Negative colonoscopy. RECOMMENDATIONS: Obtain stool for guaiac. If the stool guaiac comes positive, we may consider kaleb g studies. Anyway, she had a negative colonoscopy less than 1 year ago and she does not need another colonoscopy. I will probably perform an EGD tomorrow.
[2017-03-16 05:13] LABS: #Basophils 0.1 thou/uL (0.0-0.2); #Eosinphils 0.3 thou/uL (0.0-0.7); #Lymphocytes 1.8 thou/uL (1.20-3.40); #Monocytes 1.1 thou/uL (0.11-0.59); #Neutrophils 6.1 thou/uL (1.40-6.50); %Basophils 0.7 % (0.0-1.0); %Eosinophils 2.9 % (0.0-10.0); %Monocytes 11.4 % (0.0-10.0); Hematocrit 25.6 % (36.0-47.0); Mean Platelet Volume 6.8 fL (7.4-10.4); White Blood Cell (WBC) Count 9.2 thou/uL (4.8-10.8)
[2017-03-16 05:37] LABS: Anion Gap 9 mmol/L (10-20); BUN (Urea Nitrogen) 19 mg/dL (9.8-20.1); Calc. Creatinine Clearance 38 mL/min (70-130); Calcium 8.4 mg/dL (7.8-10.44); Carbon Dioxide 29 mmol/L (23-31); Chloride 100 mmol/L (98-107); Estimated GFR-MDRD 60
[2017-03-16] MEDS: Levothyroxine Sodium 50 MCG TAB PO SCH (05:59)
[2017-03-16] MEDS: Famotidine 20 MG TAB PO SCH (09:13)
[2017-03-16] MEDS: Digoxin 0.125 MG TAB PO SCH (09:14)
[2017-03-16] MEDS: Carvedilol 6.25 MG TAB PO SCH (09:14)
[2017-03-16] MEDS: Potassium Chloride 20 MEQ TAB PO SCH ×2 (09:18→17:20)
[2017-03-16] MEDS: Ferrous Sulfate 325 MG TAB PO SCH ×2 (09:18→17:20)
--- NOTE | 2017-03-16 10:21 | PDOC.PN ---
- Subjective Encounter Start Date: 03/16/17 Encounter Start Time: 09:15 Subjective: no sob, feels better -: had itching last night - Objective Resuscitation Status: Resuscitation Status FULL:Full Resuscitation MAR Reviewed: Yes Vital Signs & Weight: Vital Signs (12 hours) Temp Pulse Resp BP BP BP Pulse Ox 03/16/17 09:14 72 172/71 H 03/16/17 08:00 97.5 F L 72 16 98 03/16/17 07:45 97.5 F L 72 16 172/71 H 98 03/16/17 04:00 98.6 F 64 16 141/63 H 95 03/16/17 00:00 65 18 132/68 97 Weight Weight 107 lb I&O: 03/15/17 03/16/17 03/17/17 06:59 06:59 06:59 Intake Total 1440 1260 Output Total 350 900 Balance 1090 360 Result Diagrams: 03/16/17 04:11 03/16/17 04:11 Phys Exam - Physical Examination HEENT: PERRLA, moist MMs Neck: no JVD, supple Respiratory: no wheezing, no rales Cardiovascular: RRR, no significant murmur Gastrointestinal: soft, non-tender, positive bowel sounds Musculoskeletal: no edema, pulses present Neurological: non-focal, moves all 4 limbs Psychiatric: A&O x 3 Dx/Plan (1) CHF exacerbation Code(s): I50.9 - HEART FAILURE, UNSPECIFIED Status: Acute Comment: ef of 45 % on last echo 02/2017 (2) Demand ischemia of myocardium Code(s): I24.8 - OTHER FORMS OF ACUTE ISCHEMIC HEART DISEASE Status: Acute (3) CAD (coronary artery disease) Code(s): I25.10 - ATHSCL HEART DISEASE OF [place] CORONARY ARTERY W/O ANG PCTRS Status: Chronic Qualifiers: Coronary Disease-Associated Artery/Lesion type: bypass graft [place] vs. transplanted heart: [place] heart Associated angina: without angina Qualified Code(s): I25.810 - Atherosclerosis of coronary artery bypass graft(s) without angina pectoris (4) HTN (hypertension) Code(s): I10 - ESSENTIAL (PRIMARY) HYPERTENSION Status: Chronic Qualifiers: Hypertension type: essential hypertension Qualified Code(s): I10 - Essential (primary) hypertension (5) Dyslipidemia Code(s): E78.5 - HYPERLIPIDEMIA, UNSPECIFIED Status: Chronic (6) Afib Code(s): I48.91 - UNSPECIFIED ATRIAL FIBRILLATION Status: Chronic (7) Chronic anemia Code(s): D64.9 - ANEMIA, UNSPECIFIED Status: Chronic - Plan for EGD today, Hb around 7.8g -: oral slow iron, doesn't like current iron-upsets her stm -: may dc home with HH if EGD is ok -: oral asp and xarelto per GI advice * . Review of Systems - Medications/Allergies Allergies/Adverse Reactions: Allergies Allergy/AdvReac Type Severity Reaction Status Date / Time ciprofloxacin [From Cipro] Allergy Verified 02/07/13 08:17 lisinopril Allergy Verified 10/27/13 14:33 naproxen [From Naprosyn] Allergy Verified 10/27/13 14:33 Medications: Current Medications Acetaminophen (Tylenol) 650 mg PO Q4H PRN PRN Reason: Headache/Fever or Pain Amiodarone HCl (Cordarone) 200 mg PO DAILY [facility] Last Admin: 03/16/17 09:14 Dose: 200 mg Aspirin (Ecotrin) 81 mg PO DAILY [facility] Last Admin: 03/15/17 09:08 Dose: 81 mg Atorvastatin Calcium (Lipitor) 10 mg PO HS [facility] Last Admin: 03/15/17 20:57 Dose: 10 mg Bumetanide (Bumex) 1 mg PO 1400 [facility] Last Admin: 03/15/17 13:54 Dose: 1 mg Calcium Carbonate (Tums) 1,000 mg PO Q4H PRN PRN Reason: Heartburn or Indigestion Carvedilol (Coreg) 6.25 mg PO BID [facility] Last Admin: 03/16/17 09:14 Dose: 6.25 mg Coenzyme Q10 (Coenzyme Q10) 200 mg PO QAM [facility] Last Admin: 03/15/17 09:09 Dose: 200 mg Digoxin (Lanoxin) 0.125 mg PO DAILY [facility] Last Admin: 03/16/17 09:14 Dose: 0.125 mg Ezetimibe (Zetia) 10 mg PO HS [facility] Last Admin: 03/15/17 20:57 Dose: 10 mg Famotidine (Pepcid) 20 mg PO BID [facility] Last Admin: 03/16/17 09:13 Dose: 20 mg Ferrous Sulfate (Feosol) 325 mg PO BID[facility] Last Admin: 03/16/17 09:18 Dose: Not Given Hydralazine HCl (Apresoline) 5 mg SLOW IVP Q4H PRN PRN Reason: SBP Greater Than 180 Levothyroxine Sodium (Synthroid) 50 mcg PO 0600 [facility] Last Admin: 03/16/17 05:59 Dose: Not Given Nitroglycerin (Nitrostat) 0.4 mg PO Q5MIN PRN PRN Reason: Chest Pain Potassium Chloride (K-Dur) 40 meq PO BID[facility] Last Admin: 03/16/17 09:18 Dose: Not Given Senna (Senokot) 2 tab PO HSPRN PRN PRN Reason: Constipation Sodium Chloride (Flush - Normal Saline) 10 ml IVF PRN PRN PRN Reason: Saline Flush Valsartan (Diovan) 40 mg PO [facility] Last Admin: 03/15/17 20:57 Dose: 40 mg
[2017-03-16] MEDS: Bumetanide 1 MG TAB PO SCH (14:00)
[2017-03-16] MEDS ORDERED: Lidocaine 1% PF 5 ML VIAL ONE (15:21)
[2017-03-16] MEDS ORDERED: Propofol 200 MG/20 ML VIAL ONE (15:21)
[2017-03-16] MEDS ORDERED: Promethazine HCl 25 MG/ML VIAL SLOW IVP PRN (15:41)
[2017-03-16] MEDS ORDERED: Ondansetron HCl/PF 4 MG/2 ML Vial IVP PRN (15:41)
[2017-03-16] MEDS ORDERED: Morphine Sulfate 2 MG/ML SYRINGE SLOW IVP PRN (15:41)
[2017-03-16 16:23] VITALS: BP 179/71; TEMP 97.4
[2017-03-16] MEDS: Ubidecarenone 50 MG CAP PO SCH (17:19)
[2017-03-16] MEDS: Aspirin 81 mg Enteric Coated Tablet PO SCH (17:19)
--- NOTE | 2017-03-17 01:41 | DIS ---
DATE OF ADMISSION: 03/13/2017 DATE OF DISCHARGE: 03/16/2017 DISCHARGE DISPOSITION: To home. PRIMARY DISCHARGE DIAGNOSES: Acute congestive heart failure exacerbation with ejection fraction of 45%, demand ischemia, coronary artery disease, hypertension , dyslipidemia, chronic atrial fibrillation, chronic anemia. PROCEDURES DONE DURING HOSPITALIZATION: The patient has had a nuclear stress test done on 03/14/2017, which showed ejection fraction of 72% with symmetric contractility of the ventricle. Her myocardial perfusion scan was unremarkable. CT dissection protocol was done on the day of admission showed no evidence of dissection or aneurysm; however, there was prominent atherosclerotic plaque seen within the abdominal aorta. No CT evidence of pulmonary embolus was seen. There was cardiomegaly with dilatation of atriums. There was severe degree of narrowing involving origin of the celiac and proximal superior mesenteric artery on the CT dissection protocol, which was incidentally seen. Upper endoscopy done by Dr. House per staff shows no evidence of bleeding ulcer. Stool occult blood was positive. H\T\H 7.8 and 25 , platelet count 210, MCV was 82. Troponin I was indeterminate, peaking up to 0.09. CK-MB 1.5. BNP once was 1749. BUN 18, creatinine 0.7. Albumin is 3.5. Digoxin levels were 1.61. DISCHARGE MEDICATIONS: Amiodarone 200 mg p.o. daily, aspirin 81 mg p.o. daily, Bumex 2 mg p.o. daily, Coreg 6.25 mg p.o. twice daily, digoxin 0.125 mg p.o. daily, Zetia 10 mg p.o. daily, slow release iron 142 mg p.o. daily, levothyroxine 50 mcg p.o. daily, Protonix 40 mg p.o. daily, potassium chloride 10 mEq p.o. daily, pravastatin 40 mg p.o. at bedtime, Xarelto 20 mg p.o. daily, valsartan 40 mg p.o. at bedtime. ALLERGIES: Allergic to CIPROFLOXACIN, LISINOPRIL, and NAPROSYN. INPATIENT CONSULTS: Dr. Christopher for Cardiology and Dr. House for Gastroenterology. BRIEF COURSE DURING HOSPITALIZATION: The patient initially got admitted on with complaints of pain between her scapula. She has had a CT dissection protocol done, which showed no evidence of dissection, but she had cardiomegaly with mild pulmonary vascular congestion. The patient's troponin was indeterminate. She has had cardiology consultation with Dr. Christopher. A nuclear stress test done showed no reversible ischemia. The patient's BNP was elevated and then was gently diuresed. She has history of chronic atrial fibrillation and is on Xarelto for the same. Her hemoglobin was around 8 grams , and her being on aspirin and Xarelto, a Gastroenterology consultation was requested. Her stool occult blood was positive. Upper endoscopy done today showed no bleeding ulcers. Patient has had colonoscopy done in 04/2016 in [place] and was told she had hemorrhoids and nothing else was wrong. She has been cleared by Cardiology for discharge and by Gastroenterology as well. She needs a CBC to be done weekly to see for her hemoglobin as patient is on aspirin and Xarelto for now. She was also placed on a slow release iron as patient could not tolerate a full dose ferrous sulfate due to GI side effects. Cardiology is also clearly aware of her digoxin levels of 1.6, and have cleared her to continue her digoxin. The patient needs to follow up with her Dietetic Technician, Dr. Christopher in 2 weeks, and she also needs to follow up with Dr. House in 4 weeks. Please see a [id number] documentation on [facility] for the day of discharge. Home health with correction and PT will be arranged prior to discharge. Case management has been consulted for the same. Addendum: I have spoken to her PCP and he will be closely monitoring her H/H. CLAIRED
--- NOTE | 2017-03-17 06:27 | OP ---
DATE OF PROCEDURE: 03/16/2017 OPERATIVE PROCEDURE: Esophagogastroduodenoscopy. PREOPERATIVE DIAGNOSIS: Anemia, occult gastrointestinal bleeding. She had a negative colonoscopy i n 05/20/2016. POSTOPERATIVE DIAGNOSES: 1. Prominent appearing veins in the gastric fundus and cardia. 2. No esophageal varices seen. 3. Gastric antrum. 4. Normal duodenum. PROCEDURE IN DETAIL: The patient was placed on her left lateral position and was given sedation by Anesthesia Department. A [employer] video gastroscope under direct vision was passed down the oropharyn x, past the GE junction, into the stomach and subsequently into the descending duodenum. The esopha geal mucosa appeared normal. The GE junction, no pathology seen. Upon entering the stomach, the sc ope was retroflexed to visualize the fundus and cardia. The patient has actually large veins in the gastric fundus and cardia gastric varices. However, the esophagus does not show varicose vei ns. The gastric body, no pathology seen. The gastric antrum does show mild mucosal edema and eryth monica. No biopsies taken. The duodenal bulb and descending duodenum, no pathology seen. The stomach was decompressed and the scope was removed. ENDOSCOPIC IMPRESSION: Gastric varices. RECOMMENDATIONS: Abdominal CAT scan.
== END 2017-03-16 19:25 | disposition home health service (06) | DRG 292 ==
LOC: ERS 12:27 → 2SW 15:00 → OBSVTOIN 15:00 → 2NO 03-14 15:23
PROVIDERS: ADMIT Internal Medicine; ATTEND Internal Medicine
PROC: 4A02XM4 Measurement of Cardiac Total Activity, External Approach (ICD-10-PCS; principal; 2017-03-14)
PROC: 0DJ08ZZ Inspection of Upper Intestinal Tract, Via Natural or Artificial Opening Endoscopic (ICD-10-PCS; 2017-03-16)
DX: I11.0 Hypertensive heart disease with heart failure (principal); E87.1 Hypo-osmolality and hyponatremia; I48.2 Chronic atrial fibrillation; I24.8 Other forms of acute ischemic heart disease; I25.810 Atherosclerosis of coronary artery bypass graft(s) without angina pectoris; K92.1 Melena; D64.9 Anemia, unspecified; Z95.1 Presence of aortocoronary bypass graft; E78.5 Hyperlipidemia, unspecified; I25.2 Old myocardial infarction; I25.10 Atherosclerotic heart disease of native coronary artery without angina pectoris; I50.23 Acute on chronic systolic (congestive) heart failure; E03.9 Hypothyroidism, unspecified; R79.89 Other specified abnormal findings of blood chemistry; Z88.1 Allergy status to other antibiotic agents; Z95.810 Presence of automatic (implantable) cardiac defibrillator; Z88.8 Allergy status to other drugs, medicaments and biological substances; Z79.01 Long term (current) use of anticoagulants; Z95.5 Presence of coronary angioplasty implant and graft; Z82.49 Family history of ischemic heart disease and other diseases of the circulatory system
CPT/HCPCS: 36415; 71275; 78452; 80048; 80053; 80162; 82274; 82550; 82553; 83690; 83880; 84484; 85025; 93005; 93017; 93798; 94760; A9500; J0153; J1940; J2001; J2704

== ENCOUNTER 2017-12-07 03:53 | Observation (INO) | payer MEDICARE, OTHER ==
[2017-12-07 06:09] VITALS: BMI 18.3
[2017-12-07 07:51] LABS: Troponin I 0.145 ng/mL (< 0.028)
[2017-12-07] MEDS ORDERED: Mag-Al 1200 mg/1200 mg/30 ML UDCUP PO PRN (08:58)
[2017-12-07] MEDS ORDERED: Milk Of Magnesia 30 ML UDCUP PO PRN (08:58)
[2017-12-07] MEDS ORDERED: Senokot 8.6 MG TAB PO PRN (08:58)
[2017-12-07] MEDS ORDERED: Acetaminophen 325 MG TAB PO PRN (08:58)
[2017-12-07] MEDS ORDERED: Nitroglycerin 0.4 MG TAB (25 Tab Bottle) PO PRN (08:58)
[2017-12-07] MEDS ORDERED: Calcium Carbonate 500 MG ChewTAB PO PRN (08:58)
[2017-12-07] MEDS ORDERED: Apixaban 2.5 MG TAB PO SCH (09:00)
[2017-12-07] MEDS ORDERED: Diabetic Tussin 200 MG/10 ML UDCUP PO PRN (09:02)
[2017-12-07] MEDS ORDERED: Polyethylene Glycol 3350 17 GM Packet PO PRN (09:02)
[2017-12-07] MEDS ORDERED: Simethicone Chewable 80 MG TAB PO PRN (09:02)
[2017-12-07] MEDS ORDERED: hydrALAZINE 20 MG/ML VIAL SLOW IVP PRN (09:02)
[2017-12-07] MEDS ORDERED: Labetalol HCl 100 MG/20 ML VIAL SLOW IVP PRN (09:02)
[2017-12-07] MEDS ORDERED: Eucerin (Mineral Oil/Petrolatum,White) 30 gm Jar TOP PRN (09:02)
[2017-12-07 09:14] LABS: #Eosinphils 0.1 thou/uL (0.0-0.7); #Lymphocytes 1.2 thou/uL (1.20-3.40); #Monocytes 0.6 thou/uL (0.11-0.59); #Neutrophils 5.2 thou/uL (1.40-6.50); %Basophils 0.4 % (0.0-1.0); %Eosinophils 1.8 % (0.0-10.0); %Monocytes 8.8 % (0.0-10.0); %Neutrophils 72.9 % (42.0-75.0); Hemoglobin 13.4 g/dL (12.0-16.0); Mean Corpuscular HGB CONC 34.9 g/dL (32.0-36.0); Mean Corpuscular Hemoglobin 33.5 pg (27.0-31.0); Mean Platelet Volume 6.6 fL (7.4-10.4); Platelet Count 202 thou/uL (130-400); RBC Distribution Width 12.6 % (11.5-14.5); Red Blood Cell (RBC) Count 3.99 mill/uL (4.20-5.40); White Blood Cell (WBC) Count 7.2 thou/uL (4.8-10.8)
[2017-12-07 09:46] LABS: Anion Gap 13 mmol/L (10-20); BUN (Urea Nitrogen) 15 mg/dL (9.8-20.1); Calc. Creatinine Clearance 45 mL/min (70-130); Calcium 9.5 mg/dL (7.8-10.44); Carbon Dioxide 29 mmol/L (23-31); Chloride 96 mmol/L (98-107); Estimated GFR-MDRD 76; Glucose 105 mg/dL (83-110); Magnesium 2.1 mg/dL (1.6-2.6); Potassium 3.9 mmol/L (3.5-5.1); Sodium 134 mmol/L (136-145)
[2017-12-07 09:47] LABS: Digoxin 1.24 ng/mL (0.8-2.0)
[2017-12-07] MEDS: Ubidecarenone 50 MG CAP PO SCH (09:57)
[2017-12-07] MEDS: Multivitamin W/ Minerals 1 TAB PO SCH (09:58)
[2017-12-07] MEDS: Amiodarone 200 MG TAB PO SCH (09:58)
[2017-12-07] MEDS: Digoxin 0.125 MG TAB PO SCH (09:58)
[2017-12-07] MEDS: Carvedilol 6.25 MG TAB PO SCH ×2 (09:58→20:23)
[2017-12-07 10:04] LABS: Free T4 (Free Thyroxine) 1.35 ng/dL (0.70-1.48)
[2017-12-07 10:32] LABS: Troponin I 0.156 ng/mL (< 0.028)
--- NOTE | 2017-12-07 12:49 | HP ---
DATE OF ADMISSION: 12/07/2017 PRIMARY CARE PHYSICIAN: Dr. Martinez. PRIMARY CALL OR CONTACT CENTRE MANAGER: Dr. Jacob. CHIEF COMPLAINT: Chest discomfort of one-day duration. HISTORY OF PRESENT ILLNESS: The patient is an 82-year-old female with coronary artery disease, statu s post CABG; chronic atrial fibrillation, on anticoagulation; chronic systolic heart failure, ejectio n fraction 30%-35%, status post AICD, presented to the hospital with chest discomfort that has been o ngoing for the last 24-48 hours. The chest discomfort is in the left upper chest radiating to her ne ck. It is short lasting without any aggravating or relieving factor. She also had mild diaphoresis along with nausea without any vomiting. No recent immobilization or travel reported. She is complia nt with all of her medications. The pain improved after nitroglycerin in the emergency room. She de nies any cough, shortness of breath, wheezing, or heartburn. She was found to have elevated troponin s in the emergency room at [facility]. PAST MEDICAL HISTORY: 1. Coronary artery disease, status post stent placement and CABG. 2. Chronic systolic heart failure, ejection fraction 30%-35%, status post AICD. 3. Hypertension. 4. Dyslipidemia. 5. Chronic atrial fibrillation. PAST SURGICAL HISTORY: 1. Tonsillectomy. 2. Coronary stent placement. 3. CABG. ALLERGIES: Patient is allergic to CIPROFLOXACIN, LISINOPRIL, and NAPROXEN. CURRENT HOME MEDICATIONS: Reviewed. The patient is on Eliquis, carvedilol, digoxin, Zetia, levothyr oxine, Protonix, potassium, pravastatin, and Diovan. SOCIAL HISTORY: The patient currently lives at home with her family. She is . She makes her own decision with the help of her family. She is FULL CODE. FAMILY HISTORY: Positive for heart disease. REVIEW OF SYSTEMS: The following complete review of systems was negative, unless otherwise mentioned in the HPI or below: Constitutional: Weight loss or gain, ability to conduct usual activities. Skin: Rash, itching. Eyes: Double vision, pain. ENT/Mouth: Nose bleeding, neck stiffness, pain, tenderness. Cardiovascular: Palpitations, dyspnea on exertion, orthopnea. Respiratory: Shortness of breath, wheezing, cough, hemoptysis, fever or night sweats. Gastrointestinal: Poor appetite, abdominal pain, heartburn, nausea, vomiting, constipation, or diarrhea. Genitourinary: Urgency, frequency, dysuria, nocturia. Musculoskeletal: Pain, swelling. Neurologic/Psychiatric: Anxiety, depression. Allergy/Immunologic: Skin rash, bleeding tendency. PHYSICAL EXAMINATION: VITAL SIGNS: In the emergency room showed temperature 98.3, respirations 16, pulse of 88, blood pres sure of 165/79 with O2 saturation 96% on room air. GENERAL: An 82-year-old female, in no apparent distress. No chest pain at this time. HEENT: Head atraumatic, normocephalic. Sclerae anicteric. Moist mucous membrane. No oral lesion. NECK: Supple, no JVD appreciated. No carotid bruit. No palpable mass noted in the neck. LUNGS: Clear to auscultation bilaterally. HEART: S1, S2 present. Regular rate and rhythm. No murmur, rubs, or gallops appreciated. ABDOMEN: Soft, nontender, bowel sounds present. EXTREMITIES: No edema or calf tenderness. NEUROLOGIC: Grossly nonfocal, moves all four extremities. PSYCHIATRIC: Alert, awake, oriented x3. SKIN: Warm and dry. LYMPH NODES: No palpable lymph nodes in the neck. PERIPHERAL VASCULAR: Radial pulses palpable bilaterally. MUSCULOSKELETAL: No joint swelling or tenderness. LABORATORY FINDINGS: Digoxin level was 1.24. Maximum troponin 0.156. Sodium 134, potassium 3.9, ch loride 96, bicarbonate 29. CBC showed WBC 7.2 with hemoglobin 13.4. Chest x-ray at [facility] was ne gative for infiltrate. EKG by my review showed paced rhythm. Cardiolite stress test in 02/2017 was negative for reversible ischemia. IMPRESSION: 1. Chest discomfort with elevated troponins, rule out acute coronary syndrome. 2. Chronic atrial fibrillation, on anticoagulation. 3. Coronary artery disease, status post stent placement and coronary artery bypass grafting. 4. Chronic systolic heart failure, ejection fraction 30%-35%, status post automated implantable card ioverter-defibrillator. 5. Hypertension. 6. Dyslipidemia. PLAN: The patient will be monitored in the telemetry unit. All current home medications will be res umed including carvedilol, digoxin, and valsartan. Continue amiodarone. The patient was scheduled f or a lab as outpatient for free T3, free T4 and TSH, which will be done during this hospital stay per patient request. Cardiology will be consulted. The patient will be monitored on telemetry. Vital signs q.4 hourly. We will continue anticoagulation. Digoxin level is normal. Plan of care was discussed with the patient in detail. She stated understanding.
[2017-12-07] MEDS: Bumetanide 1 MG TAB PO SCH (14:21)
[2017-12-07] MEDS: Ezetimibe 10 MG TAB PO SCH (20:22)
[2017-12-07] MEDS: Atorvastatin Calcium 10 MG TAB PO SCH (20:23)
[2017-12-07] MEDS: Valsartan 80 MG TAB PO SCH (21:10)
--- NOTE | 2017-12-08 01:49 | CON ---
DATE OF CONSULTATION: 12/07/2017 HISTORY OF PRESENT ILLNESS: Kalie Agudelo is an 82-year-old white female that I have followed [facility] e 07/1997. Several years prior to that, she noticed exertional chest wheezing when walking in the co ld, which would last for several minutes and be relieved with rest. On 08/12/1997, she was helping a friend, tried to get into her car in which her keys were locked inside. She began to have the same type of the shortness of breath associated with chest discomfort. She went home, took 2 aspirins wit h the pain lasting from 10:00 p.m. until 1:00 a.m. She slept for 2-3 hours and the pain recurred. T hey continued until she went to the hospital in [place]. She had nausea and vomiting every evening meal and was somewhat diaphoretic. In the emergency room, she was given 3 sublingual nitroglycerins and her pain resolved. She was placed on IV heparin and transferred to [facility] for furt her evaluation. CK on admission was 197 with an MB of 14.7 in [place]. EKG showed nonspecific ST changes. She und erwent cardiac catheterization and was found to have an 80% proximal LAD stenosis as well as a 90% st enosis in a large septal perforating branch. There was mild anterior hypokinesis with ejection fract ion of 50% to 55%. Rudd 3.0 x 22 mm stent was placed in the LAD with final lesion being 0%. With t his, she had her usual squeezing pain felt to be due to the 90% stenosis of the septal branch. This was also dilated through the stent with final lesion being 40%. She did not have any increase in her cardiac enzymes due to the episode of pain in the microbiology lab analyst. At the time of discharge, she was walki ng 1500-feet. In 02/10/1998, she did not have any chest discomfort and underwent treadmill testing. She exercised for 6 minutes and had 0.5 to [address] segment depression in II, III, F, V4 through V6, wh ich resolved in one minute. This is felt to be suggestive for ischemia. Her cholesterol was 202, LD L 130, and Pravachol was increased 20 to 40 mg. She was admitted 1 month later with sudden-onset of lightheadedness, dyspnea, weakness, and palpitati ons. She did not have any chest discomfort. The episode resolved in 10 minutes. CK was normal; how ever, she did have an MB of 9.6 and 7.4. Carotid Doppler showed no stenosis. She did not have any a rrhythmias while in the hospital. She underwent repeat catheterization which revealed mild anterior hypokinesis with ejection fraction of 55%. There was a 20% in-stent restenosis. There was an 80% fi rst septal perforating lesion. This filled via an atrial branch that had developed collaterals since last catheterization. She underwent intravascular ultrasound of the LAD, which revealed the area of the stent to be 2.2 x 2.2 mm and was felt to continue to be adequate. In 12/1999, she underwent treadmill testing exercised for 6 minutes. She had [address] segment depr ession in II, III, F, V5 through V6, there is also a 5-beat run of supraventricular tachycardia with aberrancy at 180 per minute. The treadmill was felt to be positive for ischemia. She was asymptomat and returned 2 months later in 02/2004, stress echo testing. Ejection fraction was 55% to 60% wit h normal wall motion, no evidence of stress-induced ischemia. In 03/2001, she again had a negative s tress echo. She was on Niaspan and Lescol and had a cholesterol 183, LDL of 100 and not any chest pain or shortne ss of breath in 05/2002. 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 She u nderwent stress echo testing and exercised for 7 minutes, had 2-[address] segment depression, but no chest discomfort. Treadmill was positive for ischemia. There was a 3-beat run of ventricular tachy cardia. Echo revealed a scar of the anteroseptal wall and ischemia in the inferior posterior wall. This was a new finding. She underwent catheterization in 05/2002, which revealed mild anterior hypok inesis with ejection fraction of 50% to 55%. There was 40% distal in-stent restenosis in the proxima l LAD and an 80% septal stenosis. There was 40% to 50% mid LAD stenosis. The circumflex had a 50% p roximal stenosis, which started at the left main and extended into the first obtuse marginal. First obtuse marginal had a 70% lesion at its takeoff. The right coronary artery was normal. It was felt that intervention of the proximal circumflex/obtuse marginal would carry significant risk with disease extending to her left main as well as obtuse marginal disease at its takeoff. With our 2-vessel disease, it was felt best to treat her medically. Low-dose Toprol was added. She continued to be seen in the office for routine followups and was asymptomatic. She continued to have problems with elevated LDL. Lipitor was increased, but she developed muscle aching and has cut back to 20 mg daily, Zetia was added. She had right leg claudication was evaluated by Dr. Osorio in 02/2010 and underwent BINDING END STITCHER and stenting of the right superficial femoral artery. In 04/2008, right leg felt much better and she was asymptomatic. In 02/2009, she continued to deny any chest discomfo rt or shortness of breath. EKG in 12/2008 revealed sinus bradycardia with new left bundle branch blo ck. Echocardiogram in 12/2008 also revealed severe left ventricular dysfunction with ejection fracti on of 25% to 30%, [id number] mitral regurgitation, [id number] aortic regurgitation, m oderate tricuspid regurgitation. Carvedilol dose was gradually increased in 03/2009 were further inc reased. She also complained of palpitations lasting 5-10 seconds; however, there was better after st arting carvedilol. Echo was repeated, she continued to have ejection fraction of 25% to 30% with mod erate mitral regurgitation, moderate aortic insufficiency, moderate tricuspid regurgitation, and mild pulmonic regurgitation. With the new left bundle branch block and severe left ventricular function despite adequate treatment, it is recommended that she undergo cardiac catheterization and considerat ion of biventricular defibrillator placement. In 04/2009, she underwent left heart catheterization, which revealed ejection fraction of 30% to 35% with moderate anterior hypokinesis and mild global hypokinesis. Left main was normal. The LAD had a n 80% in-stent restenosis in the proximal LAD also at the distal end of the stents, but still in the proximal LAD, there was an 80% stenosis. There was 40% to 50% mid LAD stenosis. Circumflex had prox imal disease. There is a 70% long stenosis in a large first obtuse marginal. The right coronary art judy was normal. It was recommended that she undergo CABG. She underwent off pump CABG x2 with CORONA to the LAD and saphenous vein graft to the obtuse marginal. Postoperatively, she had atrial fibrilla tion, which was treated and then she developed arrhythmias and was eventually seen by Dr. Mcduffie. She underwent placement of a biventricular defibrillator in 10/2009. Echo revealed ejection fraction of 30% to 35% with moderate mitral regurgitation and moderate aortic insufficiency. She was kept on am iodarone to help suppress atrial fibrillation. In 11/2009, she fell and had a right distal femur fracture and underwent ORIF of this. In 05/2010, s he underwent removal of the implants in her right knee because they become painful. She did complain of some fluttering at times and at that time, the amiodarone had reduced to 100. There was increase d to 200 mg b.i.d. for 2 weeks and then back to 200 daily and she has not had any more fluttering. S he did have evidence of paroxysmal atrial fibrillation on her defibrillator in 08/2012 and 09/2012. She had another fall and had a left hip fracture in 01/2013. In 10/2013, she underwent atrial flutte r ablation as well as change out of her device. In 02/2017, she was again hospitalized with chest di scomfort. She did determine troponins, underwent adenosine Cardiolite testing, which was unremarkabl e. She now was admitted with 2 days of discomfort in her left upper chest that radiates up to her left n rohan, but will only last 10 minutes and was not seen to be related to exertion. She has some nausea w ith this and mild diaphoresis. She continued to have borderline cardiac enzymes. PAST MEDICAL HISTORY: Hypertension, hyperlipidemia, peripheral vascular disease, non-Q-wave myocardi al infarction, possible angioedema with SAW inhibitors, ischemic cardiomyopathy. OPERATIONS: CABG, biventricular ICD, ORIF of right distal femur fracture, tonsillectomy, and bladder surgery. MEDICATIONS: Amiodarone 200 mg daily, Eliquis 2.5 mg b.i.d., aspirin 81, Bumex 2 mg q.2 hours p.m., carvedilol 6.25 b.i.d., digoxin 0.125 daily, Zetia 10 at bedtime, pravastatin 40 at bedtime, ferrous sulfate 142 daily, levothyroxine 50 mcg daily, pantoprazole 40 daily, potassium 10 mEq daily, valsart an 40 mg at bedtime, CoQ10 of 200 daily. ALLERGIES: ATORVASTATIN caused muscle aches, CIPRO, PENICILLIN, QUINOLONES, CRESTOR, will cause musc le aches. She also had angioedema with SAW INHIBITORS. SOCIAL HISTORY: She does not smoke. She occasionally uses wine. 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 FAMILY HISTORY: Negative for coronary artery disease. REVIEW OF SYSTEMS: Twelve-point review of systems, otherwise unremarkable. PHYSICAL EXAMINATION: VITAL SIGNS: 140/63, pulse of 61. HEENT: PERRL. NECK: Supple. CHEST: Clear. CARDIAC: S1, S2 normal without any S3, S4 or murmurs. ABDOMEN: Normal bowel sounds without tenderness, organomegaly. EXTREMITIES: Revealed no clubbing, cyanosis, or edema. NEUROLOGIC: Grossly intact. SKIN: Warm and dry. LABORATORY DATA: EKG reveals A-V pacing. Hemoglobin 13.4, hematocrit 38.3, white count 7200, platel ets 202,000. Sodium 134, potassium 3.9, chloride 96, carbon dioxide 29, BUN 15, creatinine 0.73. Chronically elev ated troponin I with troponin I of 0.156. IMPRESSION: 1. Atypical left chest and left neck pain. Pain lasted approximately 10 seconds. 2. Chronically elevated troponin I. 3. Status post myocardial infarction and left anterior descending artery stent placement. 4. Status post coronary artery bypass grafting x2 off-pump with left internal mammary artery to left anterior descending artery and vein graft to the first obtuse marginal. 5. Left ventricular systolic dysfunction. 6. Status post biventricular implantable cardioverter defibrillator. 7. Hypertension. 8. Hyperlipidemia. 9. Cough with SAW inhibitors. 10. Myalgias with statins. PLAN: Fasting lipid profile will be obtained. This is the patient's second admission in less than a year for concern of the acute coronary syndrome. Historically, this does not sound like cardiac fito n; however, with her second admission in 9 months, it was recommended she undergo cardiac catheteriza tion. Risks of this were discussed including , myocardial infarction, dye reaction, vascular in jury, CVA, transfusion, limb loss, renal loss, etc. Also, risk of intervention with PTCA and stent p lacement were discussed including , myocardial infarction, emergent CABG, restenosis, stent thro mbosis, vessel perforation, etc. With the need for long-term anticoagulation, I would only place a b are-metal stent. Patient's Eliquis will be held at this time for 48 hours prior to catheterization.
[2017-12-08] MEDS: Levothyroxine Sodium 50 MCG TAB PO SCH (05:29)
[2017-12-08 06:08] LABS: Cardiac Risk 2.9 (Less than 4.5)
[2017-12-08] MEDS ORDERED: Lidocaine 1% (PF) 30 ML VIAL ONE (06:45)
[2017-12-08] MEDS ORDERED: Heparin 10,000 UNITS/1 ML VIAL ONE (06:49)
[2017-12-08] MEDS: Potassium Chloride 10 MEQ TAB PO SCH (09:42)
[2017-12-08] MEDS: Ferrous Sulfate 325 MG TAB PO SCH (09:42)
[2017-12-08] MEDS: Carvedilol 6.25 MG TAB PO SCH ×2 (09:42→21:01)
[2017-12-08] MEDS: Amiodarone 200 MG TAB PO SCH (09:42)
[2017-12-08] MEDS: Ubidecarenone 50 MG CAP PO SCH (09:43)
[2017-12-08] MEDS: Multivitamin W/ Minerals 1 TAB PO SCH (09:43)
[2017-12-08] MEDS: Digoxin 0.125 MG TAB PO SCH (09:43)
[2017-12-08] MEDS: Bumetanide 1 MG TAB PO SCH (14:40)
[2017-12-08] MEDS ORDERED: Communication Order-Pharmacy FS SCH (17:45)
--- NOTE | 2017-12-08 18:22 | PDOC.PN ---
- Subjective Encounter Start Date: 12/08/17 Encounter Start Time: 10:30 Patient seen and examined for CP. No new complaints. No new CP/SOB No overnight events - Objective Resuscitation Status: Resuscitation Status FULL:Full Resuscitation MAR Reviewed: Yes Vital Signs & Weight: Vital Signs (12 hours) Temp Pulse Resp BP BP Pulse Ox 12/08/17 15:03 98.2 F 61 18 165/70 H 98 12/08/17 12:24 98.2 F 61 18 151/68 H 97 12/08/17 09:43 65 12/08/17 09:42 130/60 12/08/17 08:23 97.9 F 65 16 12/08/17 08:00 96 12/08/17 07:28 97.8 F 65 18 130/60 96 Weight Admit Weight 109 lb 14.4 oz Weight 110 lb I&O: 12/07/17 12/08/17 12/09/17 06:59 06:59 06:59 Intake Total 300 960 Output Total 300 1700 Balance -300 -1400 960 Result Diagrams: 12/07/17 04:31 12/07/17 04:31 EKG Reviewed by me: Yes (Tele paced) Phys Exam - Physical Examination Constitutional: NAD Respiratory: no wheezing, no rhonchi Cardiovascular: RRR, no rub Gastrointestinal: soft, non-tender, positive bowel sounds Musculoskeletal: no edema Neurological: moves all 4 limbs Dx/Plan - Plan DVT proph w/SCDs IMPRESSION: 1. Chest discomfort with elevated troponins. 2. Chronic atrial fibrillation, on anticoagulation. 3. Coronary artery disease, status post stent placement and coronary artery bypass grafting. 4. Chronic systolic heart failure, ejection fraction 30%-35%, status post automated implantable cardioverter-defibrillator. 5. Hypertension. 6. Dyslipidemia. PLAN: Cardiology following Cont ASA/BB/ARB/Statins Cont to monitor Cardiac Cath in AM Cont other meds as below Eliquis on hold Review of Systems - Review of Systems Respiratory: negative: Cough, Dry, Shortness of Breath, Hemoptysis, SOB with Excertion, Pleuritic Pain, Sputum, Wheezing Cardiovascular: negative: chest pain, palpitations, orthopnea, paroxysmal nocturnal dyspnea, edema, light headedness, other - Medications/Allergies Allergies/Adverse Reactions: Allergies Allergy/AdvReac Type Severity Reaction Status Date / Time ciprofloxacin [From Cipro] Allergy Hives Verified 12/07/17 06:19 lisinopril Allergy Verified 12/07/17 06:19 naproxen [From Naprosyn] Allergy Verified 12/07/17 06:19 povidone-iodine Allergy Rash Verified 12/07/17 06:19 [From Betadine] soap [From Betadine] Allergy Rash Verified 12/07/17 06:19 Medications: Current Medications Acetaminophen (Tylenol) 650 mg PO Q4H PRN PRN Reason: Headache/Fever or Pain Al Hydroxide/Mg Hydroxide (Maalox) 30 ml PO Q6H PRN PRN Reason: Heartburn or Indigestion Albuterol/Ipratropium (Duoneb) 3 ml NEB [id number] PRN PRN Reason: SOB &/or Wheezing Amiodarone HCl (Cordarone) 200 mg PO DAILY [facility] Last Admin: 12/08/17 09:42 Dose: 200 mg Aspirin (Aspirin Chewable) 81 mg PO DAILY [facility] Last Admin: 12/08/17 09:42 Dose: 81 mg Atorvastatin Calcium (Lipitor) 10 mg PO HS [facility] Last Admin: 12/07/17 20:23 Dose: 10 mg Bumetanide (Bumex) 2 mg PO 1400 [facility] Last Admin: 12/08/17 14:40 Dose: 2 mg Calcium Carbonate (Tums) 1,000 mg PO Q4H PRN PRN Reason: Heartburn or Indigestion Carvedilol (Coreg) 6.25 mg PO BID [facility] Last Admin: 12/08/17 09:42 Dose: 6.25 mg Coenzyme Q10 (Coenzyme Q10) 200 mg PO DAILY [facility] Last Admin: 12/08/17 09:43 Dose: 200 mg Digoxin (Lanoxin) 0.125 mg PO DAILY [facility] Last Admin: 12/08/17 09:43 Dose: 0.125 mg Ezetimibe (Zetia) 10 mg PO HS [facility] Last Admin: 12/07/17 20:22 Dose: 10 mg Ferrous Sulfate (Feosol) 325 mg PO QAM-WM [facility] Last Admin: 12/08/17 09:42 Dose: 325 mg Guaifenesin (Robitussin Sf) 200 mg PO Q4H PRN PRN Reason: Cough Hydralazine HCl (Apresoline) 5 mg SLOW IVP Q4H PRN PRN Reason: SBP Greater Than 180 Sodium Chloride (Normal Saline 0.9%) 1,000 mls @ 100 mls/hr IV .Q10H [facility] Iron/Minerals/Multivitamins (Theragran M) 1 tab PO DAILY [facility] Last Admin: 12/08/17 09:43 Dose: 1 tab Labetalol HCl (Normodyne) 10 mg SLOW IVP Q4H PRN PRN Reason: Systolic BP > 180 Levothyroxine Sodium (Synthroid) 50 mcg PO 0600 [facility] Last Admin: 12/08/17 05:29 Dose: 50 mcg Magnesium Hydroxide (Milk Of Magnesium) 30 ml PO DAILYPRN PRN PRN Reason: Constipation Mineral Oil/White Petrolatum (Eucerin Cream) 0 gm TOP BIDPRN PRN PRN Reason: Dry Skin Miscellaneous Information (Communication Order-Pharmacy) 0 each FS ONE [facility] Nitroglycerin (Nitrostat) 0.4 mg PO Q5MIN PRN PRN Reason: Chest Pain Pantoprazole Sodium (Protonix) 40 mg PO DAILY [facility] Last Admin: 12/08/17 09:43 Dose: 40 mg Polyethylene Glycol (Miralax) 17 gm PO DAILYPRN PRN PRN Reason: Constipation Potassium Chloride (Klor-Con 10) 10 meq PO QAM-WM [facility] Last Admin: 12/08/17 09:42 Dose: 10 meq Senna (Senokot) 2 tab PO HSPRN PRN PRN Reason: Constipation Last Admin: 12/07/17 20:23 Dose: 2 tab Simethicone (Mylicon Chewable) 80 mg PO PCHS PRN PRN Reason: Gas Pain Sodium Chloride (Flush - Normal Saline) 10 ml IVF PRN PRN PRN Reason: Saline Flush Last Admin: 12/07/17 20:24 Dose: 10 ml Valsartan (Diovan) 40 mg PO HS [facility] Last Admin: 12/07/17 21:10 Dose: 40 mg
[2017-12-08] MEDS: Atorvastatin Calcium 10 MG TAB PO SCH (21:01)
[2017-12-08] MEDS: Valsartan 80 MG TAB PO SCH (21:02)
[2017-12-08] MEDS: Ezetimibe 10 MG TAB PO SCH (21:02)
[2017-12-09] MEDS: Ferrous Sulfate 325 MG TAB PO SCH (05:57)
[2017-12-09] MEDS: Potassium Chloride 10 MEQ TAB PO SCH (05:57)
[2017-12-09] MEDS: Amiodarone 200 MG TAB PO SCH (05:57)
[2017-12-09] MEDS: Levothyroxine Sodium 50 MCG TAB PO SCH (05:57)
[2017-12-09] MEDS: Ubidecarenone 50 MG CAP PO SCH (05:58)
[2017-12-09] MEDS: Digoxin 0.125 MG TAB PO SCH (05:58)
[2017-12-09] MEDS: Multivitamin W/ Minerals 1 TAB PO SCH (05:58)
[2017-12-09] MEDS: Carvedilol 6.25 MG TAB PO SCH ×2 (05:58→20:25)
[2017-12-09] MEDS ORDERED: Sodium Chloride 0.9% 1,000 ML IV SCH ×2 (06:00→09:28)
[2017-12-09] MEDS ORDERED: Lidocaine 1% (PF) 30 ML VIAL ONE (06:31)
[2017-12-09] MEDS ORDERED: Heparin 10,000 UNITS/1 ML VIAL ONE (06:38)
[2017-12-09] MEDS ORDERED: Fentanyl 100 MCG/2 ML VIAL ONE (07:02)
[2017-12-09] MEDS ORDERED: Midazolam HCl 2 mg/2 ml Vial ONE (07:02)
[2017-12-09] MEDS ORDERED: Clopidogrel Bisulfate 300 MG TAB ONE (07:33)
[2017-12-09] MEDS ORDERED: Nitroglycerin 100MG/250ML BOT 250 ML ONE (07:33)
[2017-12-09] MEDS ORDERED: Bivalirudin 250 MG VIAL ONE (07:33)
[2017-12-09] MEDS ORDERED: Clopidogrel Bisulfate 75 MG TAB PO SCH ×2 (09:28→10:00)
[2017-12-09] MEDS ORDERED: Morphine 4 MG/ML Carpuject SLOW IVP PRN (09:28)
[2017-12-09] MEDS ORDERED: Morphine 4 MG/ML VIAL IV PRN (09:58)
[2017-12-09] MEDS ORDERED: Iopamidol 370 76% 100 ML VIAL ONE (11:20)
[2017-12-09] MEDS ORDERED: Iopamidol 370 76% 50 ML VIAL FS ONE (11:20)
--- NOTE | 2017-12-09 16:23 | CCL ---
CARDIAC CATHETERIZATION REPORT: Date: 12/09/17 PROCEDURE: Left heart catheterization, selective arteriography, left ventriculography, bypass graft angiography, CORONA injection, intracoronary nitroglycerin, and stent placement in the proximal LAD. INDICATION: Acute coronary syndrome. DESCRIPTION OF PROCEDURE: The patient was brought to the cardiac laboratory technology teacher and the right groin was prepped and draped in the usu al fashion. 1% lidocaine was infiltrated. Patient was given Versed 1 mg IV and Fentanyl 25 mg IV. Neil sed 1 mg IV was repeated once during the procedure. A 6 [place] sheath was placed into the right femor al artery and heparin 3,000 units given. A 6 [place] angulated pigtail was inserted and pressures were obtained. Left ventriculogram was performed using 30 ml of contrast at 12 ml/s in a OLSON 30 degree pr ojection. Pressures were obtained and the pigtail was removed. A 6 [place] Claudia left-4 followed by a 6 [place] Claudia right-4 was used for coronary arteriography. Angiomax bolus and drip were given. A 6 [place] Claudia left-4 guide catheter was inserted. A wire was placed into the LAD after multiple reshaping of the distal wire allowed entry into the LAD. Emerge 2 .0 x 15 mm balloon was then inserted and the distal portion of the stent was dilated. The mid portion of the stent was also dilated. This was removed and Rebel 2.25 x 12 mm stent was then placed distal to the previous stent. The stent delivery balloon was remoted and Rebel 3.0 x 16 mm stent was then po sitioned overlapping this and deployed. There continued to be a small waist at the distal end of the old crown stent. The 3.0 stent delivery balloon would not advance, so this was removed and Emerge NC 2.5 x 12 mm balloon was inserted and this area was dilated with excellent results. The balloon and wi res were removed. Final contrast injection was performed and the guide catheter was removed. Sheath w as sutured in place. During the procedure, the patient received Plavix 600 mg PO. RESULTS: PRESSURES: Aorta 102/49, mean of 109 Left Ventricle 189/11 LEFT VENTRICULOGRAM: There was moderate apical hypokinesis with ejection fraction of 40-45%. There was moderate mitral reg urgitation. CORONARY ARTERIOGRAPHY: 1. The left main was normal. 2. The LAD had an 80% proximal in-stent restenosis. There also was an 80% lesion just distal to the stent. 3. The circumflex had a 70% proximal stenosis and the first obtuse marginal was totally occluded. 4. The right coronary artery had a 20% proximal stenosis. BYPASS GRAFTS: 1. The CORONA to the LAD was patent. 2. Saphenous vein graft to the first obtuse marginal was patent. INTERVENTION RESULTS: The initial lesions were 80%; both were reduced to 0%. IMPRESSION: 1. Two vessel coronary artery disease (LAD and circumflex). 2. Two of two bypass grafts patent. 3. Mild left ventricular dysfunction. 4. Moderate mitral regurgitation. 5. Successful bare metal stent placement in the proximal LAD.
[2017-12-09] MEDS: Bumetanide 1 MG TAB PO SCH (19:22)
[2017-12-09] MEDS: Valsartan 80 MG TAB PO SCH (20:26)
[2017-12-09] MEDS: Atorvastatin Calcium 10 MG TAB PO SCH (20:26)
[2017-12-09] MEDS: Ezetimibe 10 MG TAB PO SCH (20:26)
--- NOTE | 2017-12-09 21:35 | PDOC.PN ---
- Subjective Encounter Start Date: 12/09/17 Encounter Start Time: 18:00 Patient seen and examined for CP. No new complaints. No overnight events. s/p LAD stent placement. - Objective Resuscitation Status: Resuscitation Status FULL:Full Resuscitation MAR Reviewed: Yes Vital Signs & Weight: Vital Signs (12 hours) Temp Pulse Resp BP BP BP Pulse Ox 12/09/17 20:25 159/71 H 12/09/17 20:24 98.1 F 62 18 159/71 H 96 12/09/17 15:35 97.5 F L 66 14 163/73 H 97 12/09/17 13:35 98.0 F 60 20 12/09/17 13:30 60 20 136/70 136/70 97 Weight Admit Weight 109 lb 14.4 oz Weight 108 lb 14.4 oz I&O: 12/08/17 12/09/17 12/10/17 06:59 06:59 06:59 Intake Total 300 2310 1005 Output Total 1700 2700 1150 Balance -1400 -390 -145 Result Diagrams: 12/10/17 03:59 12/10/17 03:59 EKG Reviewed by me: Yes (Tele paced) Phys Exam - Physical Examination Constitutional: NAD Respiratory: no wheezing, no rhonchi Cardiovascular: RRR, no rub Gastrointestinal: soft, non-tender, positive bowel sounds Musculoskeletal: no edema Neurological: moves all 4 limbs Dx/Plan - Plan DVT proph w/SCDs IMPRESSION: 1. Chest discomfort with elevated troponins s/p LAD stent placement 2. Chronic atrial fibrillation, on anticoagulation. Eliquis to be restarted on 12/12 3. Coronary artery disease, status post stent placement and coronary artery bypass grafting. 4. Chronic systolic heart failure, ejection fraction 30%-35%, status post AICD. 5. Hypertension. 6. Dyslipidemia. PLAN: s/p LAD BMS stent placement Cont ASA/Plavix Cont BB/ARB/Statins Cont to monitor Cont other meds as below Review of Systems - Review of Systems Respiratory: negative: Cough, Dry, Shortness of Breath, Hemoptysis, SOB with Excertion, Pleuritic Pain, Sputum, Wheezing Cardiovascular: negative: chest pain, palpitations, orthopnea, paroxysmal nocturnal dyspnea, edema, light headedness, other - Medications/Allergies Allergies/Adverse Reactions: Allergies Allergy/AdvReac Type Severity Reaction Status Date / Time ciprofloxacin [From Cipro] Allergy Hives Verified 12/07/17 06:19 lisinopril Allergy Verified 12/07/17 06:19 naproxen [From Naprosyn] Allergy Verified 12/07/17 06:19 povidone-iodine Allergy Rash Verified 12/07/17 06:19 [From Betadine] soap [From Betadine] Allergy Rash Verified 12/07/17 06:19 Medications: Current Medications Acetaminophen (Tylenol) 650 mg PO Q4H PRN PRN Reason: Headache/Fever or Pain Al Hydroxide/Mg Hydroxide (Maalox) 30 ml PO Q6H PRN PRN Reason: Heartburn or Indigestion Albuterol/Ipratropium (Duoneb) 3 ml NEB [id number] PRN PRN Reason: SOB &/or Wheezing Amiodarone HCl (Cordarone) 200 mg PO DAILY [facility] Last Admin: 12/09/17 05:57 Dose: 200 mg Aspirin (Aspirin Chewable) 81 mg PO DAILY [facility] Atorvastatin Calcium (Lipitor) 10 mg PO HS [facility] Last Admin: 12/09/17 20:26 Dose: 10 mg Bumetanide (Bumex) 2 mg PO 1400 [facility] Last Admin: 12/09/17 19:22 Dose: Not Given Calcium Carbonate (Tums) 1,000 mg PO Q4H PRN PRN Reason: Heartburn or Indigestion Carvedilol (Coreg) 6.25 mg PO BID [facility] Last Admin: 12/09/17 20:25 Dose: 6.25 mg Clopidogrel Bisulfate (Plavix) 75 mg PO DAILY [facility] Coenzyme Q10 (Coenzyme Q10) 200 mg PO DAILY [facility] Last Admin: 12/09/17 05:58 Dose: 200 mg Digoxin (Lanoxin) 0.125 mg PO DAILY [facility] Last Admin: 12/09/17 05:58 Dose: 0.125 mg Ezetimibe (Zetia) 10 mg PO HS [facility] Last Admin: 12/09/17 20:26 Dose: 10 mg Ferrous Sulfate (Feosol) 325 mg PO QAM-WM [facility] Last Admin: 12/09/17 05:57 Dose: 325 mg Guaifenesin (Robitussin Sf) 200 mg PO Q4H PRN PRN Reason: Cough Hydralazine HCl (Apresoline) 5 mg SLOW IVP Q4H PRN PRN Reason: SBP Greater Than 180 Iron/Minerals/Multivitamins (Theragran M) 1 tab PO DAILY [facility] Last Admin: 12/09/17 05:58 Dose: 1 tab Labetalol HCl (Normodyne) 10 mg SLOW IVP Q4H PRN PRN Reason: Systolic BP > 180 Levothyroxine Sodium (Synthroid) 50 mcg PO 0600 [facility] Last Admin: 12/09/17 05:57 Dose: 50 mcg Magnesium Hydroxide (Milk Of Magnesium) 30 ml PO DAILYPRN PRN PRN Reason: Constipation Mineral Oil/White Petrolatum (Eucerin Cream) 0 gm TOP BIDPRN PRN PRN Reason: Dry Skin Morphine Sulfate (Morphine) 2 mg SLOW IVP Q4H PRN PRN Reason: Moderate Pain (4-6) Morphine Sulfate (Morphine) 4 mg IV Q4H PRN PRN Reason: Moderate to Severe Pain (6-10) Nitroglycerin (Nitrostat) 0.4 mg PO Q5MIN PRN PRN Reason: Chest Pain Pantoprazole Sodium (Protonix) 40 mg PO DAILY [facility] Last Admin: 12/09/17 05:58 Dose: 40 mg Polyethylene Glycol (Miralax) 17 gm PO DAILYPRN PRN PRN Reason: Constipation Potassium Chloride (Klor-Con 10) 10 meq PO QAM-WM [facility] Last Admin: 12/09/17 05:57 Dose: 10 meq Senna (Senokot) 2 tab PO HSPRN PRN PRN Reason: Constipation Last Admin: 12/07/17 20:23 Dose: 2 tab Simethicone (Mylicon Chewable) 80 mg PO PCHS PRN PRN Reason: Gas Pain Sodium Chloride (Flush - Normal Saline) 10 ml IVF PRN PRN PRN Reason: Saline Flush Last Admin: 12/09/17 20:27 Dose: 10 ml Valsartan (Diovan) 40 mg PO HS [facility] Last Admin: 12/09/17 20:26 Dose: 40 mg
[2017-12-10] MEDS: Levothyroxine Sodium 50 MCG TAB PO SCH (03:58)
[2017-12-10 04:58] LABS: #Eosinphils 0.2 thou/uL (0.0-0.7); #Lymphocytes 0.7 thou/uL (1.20-3.40); #Monocytes 0.8 thou/uL (0.11-0.59); #Neutrophils 5.5 thou/uL (1.40-6.50); %Basophils 0.4 % (0.0-1.0); %Eosinophils 2.4 % (0.0-10.0); %Lymphocytes 10.1 % (21.0-51.0); %Monocytes 10.4 % (0.0-10.0); %Neutrophils 76.8 % (42.0-75.0); Hemoglobin 12.4 g/dL (12.0-16.0); Mean Corpuscular HGB CONC 32.8 g/dL (32.0-36.0); Mean Corpuscular Hemoglobin 31.9 pg (27.0-31.0); Mean Corpuscular Volume 97.4 fL (78.0-98.0); Mean Platelet Volume 6.7 fL (7.4-10.4); Platelet Count 163 thou/uL (130-400); RBC Distribution Width 12.7 % (11.5-14.5); Red Blood Cell (RBC) Count 3.88 mill/uL (4.20-5.40); White Blood Cell (WBC) Count 7.2 thou/uL (4.8-10.8)
[2017-12-10 05:05] LABS: ALT (SGPT) 21 U/L (8-55); AST (SGOT) 30 U/L (5-34); Albumin 3.5 g/dL (3.4-4.8); Alkaline Phosphatase 52 U/L (40-150); Anion Gap 10 mmol/L (10-20); BUN (Urea Nitrogen) 12 mg/dL (9.8-20.1); Bilirubin, Total 0.4 mg/dL (0.2-1.2); Calc. Creatinine Clearance 46 mL/min (70-130); Carbon Dioxide 28 mmol/L (23-31); Chloride 100 mmol/L (98-107); Estimated GFR-MDRD 77; Globulin 3.1 g/dL (2.4-3.5); Glucose 90 mg/dL (83-110); Protein, Total 6.6 g/dL (6.0-8.3); Sodium 134 mmol/L (136-145)
[2017-12-10 07:41] VITALS: BP 134/62; TEMP 97.5
[2017-12-10] MEDS ORDERED: Clopidogrel Bisulfate 75 MG TAB PO SCH (09:00)
[2017-12-10] MEDS: Ferrous Sulfate 325 MG TAB PO SCH (09:55)
[2017-12-10] MEDS: Potassium Chloride 10 MEQ TAB PO SCH (09:56)
[2017-12-10] MEDS: Amiodarone 200 MG TAB PO SCH (09:56)
[2017-12-10] MEDS: Carvedilol 6.25 MG TAB PO SCH (09:56)
[2017-12-10] MEDS: Multivitamin W/ Minerals 1 TAB PO SCH (09:57)
[2017-12-10] MEDS: Ubidecarenone 50 MG CAP PO SCH (09:57)
[2017-12-10] MEDS: Digoxin 0.125 MG TAB PO SCH (09:57)
--- NOTE | 2017-12-10 14:56 | DIS ---
DATE OF DISCHARGE: 12/10/2017 DISCHARGE DISPOSITION: Home. FOLLOWUP: Follow up with primary care physician, Dr. Martinez in 1 week. Follow up with Dr. Les cabello in 2 weeks. The patient will resume Eliquis on 12/12/2017. She will continue aspirin, Plavix, and Eliquis for on e month. After one month, she will be back on aspirin and Eliquis. All other home medications were resumed. The patient was seen and examined on the day of discharge. Denies any new complaints, no chest pain, shortness of breath, palpitations reported. BRIEF HOSPITAL COURSE: The patient is an 82-year-old female with coronary artery disease, status pos t CABG, chronic atrial fibrillation on anticoagulation; chronic systolic heart failure, ejection frac tion 30-35%, status post AICD, presented to the emergency room with chest discomfort. Please refer t o the history and physical for further details. The patient was admitted to the hospital with a diagnosis of chest discomfort, rule out acute coronar y syndrome. Serial troponins were in the indeterminate range with a maximum of 0.156. The patient w as seen by Cardiology, Dr. Les Jacob. Due to repeated episodes of chest discomfort, she underw ent a cardiac catheterization with LAD bare metal stent placement. The patient will resume Eliquis on 12/12/2017. She will take Plavix for 1 month along with low dose aspirin. She has been cleared by Cardiology for discharge. She is chest pain free at this time. FINAL DIAGNOSES: 1. Chest discomfort with elevated troponin, status post left anterior descending bare metal stent pl acement this admission. 2. Chronic atrial fibrillation, on anticoagulation, Eliquis to be restarted on 12/12/2017. 3. Coronary artery disease, status post stent placement and coronary artery bypass grafting. 4. Chronic systolic heart failure, ejection fraction 30%-35%, status post AICD. 5. Hypertension. 6. Dyslipidemia. Plan of care was discussed with the patient in detail. She stated understanding.
--- NOTE | 2017-12-12 17:49 | EKG ---
Test Reason : POST STENT-PROX LAD Blood Pressure : / mmHG Vent. Rate : 060 BPM Atrial Rate : 060 BPM P-R Int : 000 ms QRS Dur : 186 ms QT Int : 492 ms P-R-T Axes : 000 007 112 degrees QTc Int : 492 ms AV sequential or dual chamber electronic pacemaker When compared with ECG of 07-DEC-2017 04:20, (Unconfirmed) Vent. rate has decreased BY 6 BPM Confirmed by HILARY GARCES (2) on 12/12/2017 5:49:27 PM Referred By: MILI Confirmed By:HILARY GARCES
== END 2017-12-10 11:10 | disposition home or self-care (01) ==
LOC: ERS 03:53 → 2SW 04:41
PROVIDERS: ADMIT Internal Medicine Infectious Disease; ATTEND Internal Medicine Infectious Disease
DX: R07.89 Other chest pain (principal); I25.118 Atherosclerotic heart disease of native coronary artery with other forms of angina pectoris; I25.82 Chronic total occlusion of coronary artery; I48.2 Chronic atrial fibrillation; I11.0 Hypertensive heart disease with heart failure; I50.22 Chronic systolic (congestive) heart failure; E78.5 Hyperlipidemia, unspecified; I25.2 Old myocardial infarction; R79.89 Other specified abnormal findings of blood chemistry; M79.1 Myalgia; I34.0 Nonrheumatic mitral (valve) insufficiency; Z79.01 Long term (current) use of anticoagulants; Z79.82 Long term (current) use of aspirin; Z79.899 Other long term (current) drug therapy; Z88.0 Allergy status to penicillin; Z88.8 Allergy status to other drugs, medicaments and biological substances; Z95.1 Presence of aortocoronary bypass graft
CPT/HCPCS: 80048; 80053; 80061; 80162; 82553; 83735; 84439; 84443; 84481; 84484 ×2; 85025 ×2; 85347 ×2; 92928; 93005 ×3; 93459; 93798; 94760 ×3; 96360; 96361; 97139; 99285; C1725; C1769 ×2; C1876; C1887; G0378 ×2; 36415; 93010; 99152; 99153; J0583; J1644; J2001; J2250; J3010

== ENCOUNTER 2017-12-24 08:57 | Outpatient (CLI) | payer MEDICARE | END 2017-12-24 08:58 | disposition home or self-care (01) | LOC: CP 08:57 | PROVIDERS: ATTEND Internal Medicine Cardiovascular Disease | DX: Z51.81 Encounter for therapeutic drug level monitoring (principal); Z79.899 Other long term (current) drug therapy | CPT/HCPCS: 94060; 94727; 94729 ==

== ENCOUNTER 2018-01-15 09:34 | Day surgery (SDC) | payer MEDICARE ==
[2018-01-14 12:12] VITALS: BMI 18.3
[2018-01-15] MEDS ORDERED: PROPOFOL 20 ML ONE (10:31)
--- NOTE | 2018-01-15 11:43 | OP ---
DATE OF PROCEDURE: 01/15/2018 REFERRING PHYSICIAN: Dr. Les Jacob PROCEDURE: Internal cardioversion. SURGEON: Dr. Rick Pinon REASON FOR PROCEDURE: Ms. Agudelo is an 82-year-old woman with history of ischemic cardiomyopathy, FIRST BEATER ICD in place, who developed atypical atrial flutter despite continued amiodarone therapy. She pe rsisting in this rhythm and she is here for a cardioversion. She has been on Eliquis for over 5 week s. PROCEDURE: The patient received propofol by Anesthesia specialist. After adequate level of sedation was achieved, initially the ICD, which is a [employer] Viva FIRST BEATER ICD was interrogated and found to be in adequate order. Battery longevity 1.8 years. Lead parameters are adequate. Atrial fibrillation/ atrial flutter still persisting. At this point burst atrial pacing was performed but it did not term inate the flutter. Following that a synchronized 30 joule shock promptly converting her back to sinu s rhythm. CONCLUSION: Successful internal cardioversion. PLAN: Continue amiodarone and Eliquis. Routine followup.
[2018-01-15] MEDS ORDERED: PROPOFOL 200 MG/20 ML VIAL ONE (15:15)
[2018-01-15 15:46] LABS: Hemoglobin 14.1 g/dL (12.0-16.0); Mean Corpuscular HGB CONC 34.2 g/dL (32.0-36.0); Mean Corpuscular Hemoglobin 33.6 pg (27.0-31.0); Mean Corpuscular Volume 98.2 fL (78.0-98.0); Mean Platelet Volume 6.4 fL (7.4-10.4); Platelet Count 203 thou/uL (130-400); RBC Distribution Width 12.8 % (11.5-14.5); Red Blood Cell (RBC) Count 4.21 mill/uL (4.20-5.40); White Blood Cell (WBC) Count 8.4 thou/uL (4.8-10.8)
[2018-01-15 15:47] LABS: Anion Gap 16 mmol/L (10-20); BUN (Urea Nitrogen) 19 mg/dL (9.8-20.1); Calc. Creatinine Clearance 35 mL/min (70-130); Calcium 9.9 mg/dL (7.8-10.44); Carbon Dioxide 28 mmol/L (23-31); Chloride 95 mmol/L (98-107); Estimated GFR-MDRD 57; Glucose 96 mg/dL (83-110); Potassium 4.2 mmol/L (3.5-5.1); Sodium 135 mmol/L (136-145)
[2018-01-15 15:53] LABS: INR-International Normal Ratio 1.5; PTT 36.8 SEC (22.9-36.1); Prothrombin Time 18.5 SEC (12.0-14.7)
[2018-01-15 16:05] LABS: Eosinophils 1 % (0-10); Lymphocytes 10 % (21-51); MDiff Complete? YES; Monocytes 10 % (0-10); Neutrophil 77 % (42-75); PLT Morphology Comment Appears Adequate; RBC Morphology Normal
== END 2018-01-15 12:35 | disposition home or self-care (01) ==
LOC: CCL 09:34
PROVIDERS: ATTEND Internal Medicine Cardiovascular Disease
PROC: 5A2204Z Restoration of Cardiac Rhythm, Single (ICD-10-PCS; principal; 2018-01-15)
DX: I48.1 Persistent atrial fibrillation (principal); I25.5 Ischemic cardiomyopathy; I25.10 Atherosclerotic heart disease of native coronary artery without angina pectoris; I44.7 Left bundle-branch block, unspecified; I50.22 Chronic systolic (congestive) heart failure; I48.92 Unspecified atrial flutter; Z79.01 Long term (current) use of anticoagulants; Z79.82 Long term (current) use of aspirin; Z79.899 Other long term (current) drug therapy; Z88.1 Allergy status to other antibiotic agents; Z88.8 Allergy status to other drugs, medicaments and biological substances; Z88.7 Allergy status to serum and vaccine; Z91.048 Other nonmedicinal substance allergy status; Z95.810 Presence of automatic (implantable) cardiac defibrillator; Z95.5 Presence of coronary angioplasty implant and graft
CPT/HCPCS: 80048; 85025; 85610; 85730; 92960; J2704

== ENCOUNTER 2023-02-19 20:25 | Inpatient (IN) | payer MEDICARE, OTHER ==
[2023-02-19 21:19] LABS: #Monocytes 0.7 thou/uL (0.11-0.59); %Basophils 0.2 % (0.0-1.0); %Lymphocytes 10.5 % (21.0-51.0); %Monocytes 13.3 % (0.0-10.0); %Neutrophils 75.8 % (42.0-75.0); Hematocrit 36.1 % (36.0-47.0); Hemoglobin 11.9 g/dL (12.0-16.0); Mean Corpuscular Hemoglobin 32.2 pg (27.0-31.0); Mean Corpuscular Volume 97.8 fl (78.0-98.0); Mean Platelet Volume 10.1 fL (7.4-10.4); Platelet Count 124 10x3/uL (130-400); RBC Distribution Width 15.2 % (11.5-14.5); Red Blood Cell (RBC) Count 3.69 mill/uL (4.20-5.40); White Blood Cell (WBC) Count 5.3 10x3/uL (4.8-10.8)
[2023-02-19 21:39] LABS: ALT (SGPT) 12 U/L (8-55); AST (SGOT) 24 U/L (5-34); Albumin 3.5 g/dL (3.4-4.8); Alkaline Phosphatase 69 U/L (40-110); Anion Gap 14 mmol/L (10-20); BUN (Urea Nitrogen) 17 mg/dL (9.8-20.1); Bilirubin, Total 0.5 mg/dL (0.2-1.2); CK (CPK) 51 U/L (29-168); Calc. Creatinine Clearance 0 mL/min (70-130); Calcium 8.7 mg/dL (7.8-10.44); Carbon Dioxide 26 mmol/L (23-31); Chloride 101 mmol/L (98-107); Estimated GFR 84; Glucose 112 mg/dL (83-110); Lipase 16 U/L (8-78); Potassium 3.8 mmol/L (3.5-5.1); Protein, Total 6.5 g/dL (5.8-8.1); Sodium 137 mmol/L (136-145)
[2023-02-19 21:41] LABS: Bacteria/HPF 2+ HPF (None Seen); Bilirubin Negative (Negative); Blood, Urine 1+ (Negative); CAUTI Indications for Culture Fever or rigors; Clarity Clear (Clear); Glucose, Urine (Dipstick) Normal (Negative); Ketone, Urine Negative (Negative); Leukocyte 250 Leu/uL (Negative); Nitrite Negative (Negative); Protein, Urine (Dipstick) 50 mg/dL (Neg-Trace); Specific Gravity, Urine 1.025 (1.002-1.036); Squamous Epithelial 0-3 HPF (0-3); Urobilinogen Normal mg/dL (Less than 2); WBC/HPF Greater than 50 HPF (0-3); pH, Urine 5.5 (5.0-9.0)
[2023-02-19 21:43] LABS: Urine Culture Reflex Yes Yes
[2023-02-19 21:51] LABS: SARS-CoV-2 NAA Rapid Test DETECTED (NotDetected)
[2023-02-19] MEDS ORDERED: cefTRIAXone (ROCEPHIN) 1 GM VIAL ONE (22:07)
[2023-02-19] MEDS ORDERED: Vancomycin 1 GM/200 ML (FROZEN) BAG ONE (22:07)
[2023-02-19] MEDS ORDERED: Aspirin 325 mg Enteric Coated Tablet PO SCH (23:00)
[2023-02-19] MEDS ORDERED: Sodium Chloride 0.9% 1,000 ML IV SCH (23:00)
[2023-02-19] MEDS ORDERED: predniSONE 20 MG TAB PO SCH (23:15)
[2023-02-19] MEDS ORDERED: Furosemide 20 MG/2 ML VIAL SLOW IVP SCH (23:15)
[2023-02-20 01:36] LABS: Troponin I 0.203 ng/mL (< 0.028)
[2023-02-20 03:28] LABS: #Monocytes 0.6 thou/uL (0.11-0.59); #Neutrophils 5.1 thou/uL (1.40-6.50); %Basophils 0.5 % (0.0-1.0); %Lymphocytes 10.4 % (21.0-51.0); %Monocytes 9.4 % (0.0-10.0); %Neutrophils 79.4 % (42.0-75.0); Hemoglobin 12.8 g/dL (12.0-16.0); Mean Corpuscular HGB CONC 31.2 g/dL (32.0-36.0); Mean Corpuscular Hemoglobin 31.1 pg (27.0-31.0); Mean Corpuscular Volume 99.8 fl (78.0-98.0); Mean Platelet Volume 9.8 fL (7.4-10.4); Platelet Count 123 10x3/uL (130-400); RBC Distribution Width 15.4 % (11.5-14.5); Red Blood Cell (RBC) Count 4.11 mill/uL (4.20-5.40); White Blood Cell (WBC) Count 6.5 10x3/uL (4.8-10.8)
[2023-02-20 04:06] LABS: Anion Gap 18 mmol/L (10-20); BUN (Urea Nitrogen) 15 mg/dL (9.8-20.1); Calc. Creatinine Clearance 43 mL/min (70-130); Carbon Dioxide 27 mmol/L (23-31); Chloride 96 mmol/L (98-107); Estimated GFR 84; Glucose 108 mg/dL (83-110); Potassium 4.5 mmol/L (3.5-5.1); Sodium 136 mmol/L (136-145)
[2023-02-20] MEDS ORDERED: Non-Formulary Item 1 EACH (Potassium Chloride [Potassium Chloride] 10 MEQ Capsule.Er) PO SCH (09:00)
[2023-02-20] MEDS ORDERED: LEVOTHYROXINE SODIUM 88 MCG PO SCH (09:00)
[2023-02-20] MEDS: Cefepime 1 GM in Sodium Chloride 0.9% 100 ML IVPB SCH ×2 (09:50→20:33)
[2023-02-20] MEDS: Furosemide 20 MG/2 ML VIAL SLOW IVP SCH ×2 (09:50→20:33)
[2023-02-20] MEDS: Potassium Chloride 10 MEQ TAB PO SCH (09:51)
[2023-02-20] MEDS: Digoxin 0.25 MG TAB PO SCH (09:51)
[2023-02-20] MEDS: Apixaban 2.5 MG TAB PO SCH ×2 (09:51→20:34)
[2023-02-20] MEDS: Aspirin Chewable 81 MG TAB PO SCH (09:51)
[2023-02-20] MEDS: Aspirin 325 mg Enteric Coated Tablet PO SCH (09:51)
[2023-02-20] MEDS: Atorvastatin Calcium 20 MG TAB PO SCH (09:51)
[2023-02-20] MEDS: predniSONE 20 MG TAB PO SCH ×2 (09:51→20:34)
[2023-02-20 10:08] VITALS: BMI 17.1
[2023-02-20] MEDS: Ezetimibe 10 MG TAB PO SCH (20:38)
[2023-02-21] MEDS: Levothyroxine Sodium 88 MCG TAB PO SCH (06:16)
[2023-02-21] MEDS: Cefepime 1 GM in Sodium Chloride 0.9% 100 ML IVPB SCH ×2 (09:44→21:18)
[2023-02-21] MEDS: Furosemide 20 MG/2 ML VIAL SLOW IVP SCH ×2 (09:44→21:19)
[2023-02-21] MEDS: predniSONE 20 MG TAB PO SCH ×2 (09:45→21:18)
[2023-02-21] MEDS: Digoxin 0.25 MG TAB PO SCH (09:45)
[2023-02-21] MEDS: Aspirin Chewable 81 MG TAB PO SCH (09:45)
[2023-02-21] MEDS: Aspirin 325 mg Enteric Coated Tablet PO SCH (09:45)
[2023-02-21] MEDS: Atorvastatin Calcium 20 MG TAB PO SCH (09:45)
[2023-02-21] MEDS: Apixaban 2.5 MG TAB PO SCH ×2 (09:45→21:18)
[2023-02-21] MEDS: Potassium Chloride 10 MEQ TAB PO SCH (09:45)
[2023-02-21] MEDS: Ezetimibe 10 MG TAB PO SCH (21:18)
[2023-02-22 05:13] LABS: Troponin I 0.271 ng/mL (< 0.028)
[2023-02-22] MEDS: Levothyroxine Sodium 88 MCG TAB PO SCH (05:50)
[2023-02-22] MEDS: Aspirin Chewable 81 MG TAB PO SCH (11:25)
[2023-02-22] MEDS: Potassium Chloride 10 MEQ TAB PO SCH (11:25)
[2023-02-22] MEDS: Aspirin 325 mg Enteric Coated Tablet PO SCH (11:25)
[2023-02-22] MEDS: Apixaban 2.5 MG TAB PO SCH (11:25)
[2023-02-22] MEDS: Digoxin 0.25 MG TAB PO SCH (11:25)
[2023-02-22] MEDS: Furosemide 20 MG/2 ML VIAL SLOW IVP SCH (11:25)
[2023-02-22] MEDS: predniSONE 20 MG TAB PO SCH (11:26)
[2023-02-22] MEDS: Atorvastatin Calcium 20 MG TAB PO SCH (11:26)
[2023-02-22] MEDS: Cefepime 1 GM in Sodium Chloride 0.9% 100 ML IVPB SCH (11:26)
[2023-02-22 12:19] VITALS: BP 153/69; TEMP 97.9
[2023-02-22 13:30] LABS: ALT (SGPT) 17 U/L (8-55); AST (SGOT) 35 U/L (5-34); Albumin 3.5 g/dL (3.4-4.8); Alkaline Phosphatase 60 U/L (40-110); Bilirubin, Direct 0.2 mg/dL (0.1-0.3); Bilirubin, Total 0.3 mg/dL (0.2-1.2); Protein, Total 6.6 g/dL (5.8-8.1)
== END 2023-02-22 16:00 | disposition home or self-care (01) | DRG 871 ==
LOC: ERS 20:25 → 2NO 22:54
PROVIDERS: ADMIT Internal Medicine; ATTEND Family Medicine
PROC: 8E0ZXY6 Isolation (ICD-10-PCS; principal; 2023-02-19)
PROC: 3E03329 Introduction of Other Anti-infective into Peripheral Vein, Percutaneous Approach (ICD-10-PCS; 2023-02-19)
DX: A41.89 Other specified sepsis (principal); G93.41 Metabolic encephalopathy; U07.1 COVID-19; I21.A1 Myocardial infarction type 2; N39.0 Urinary tract infection, site not specified; I50.9 Heart failure, unspecified; I48.91 Unspecified atrial fibrillation; E78.5 Hyperlipidemia, unspecified; I25.10 Atherosclerotic heart disease of native coronary artery without angina pectoris; I48.0 Paroxysmal atrial fibrillation; E03.9 Hypothyroidism, unspecified; I35.0 Nonrheumatic aortic (valve) stenosis; Z96.642 Presence of left artificial hip joint; Z95.1 Presence of aortocoronary bypass graft; I11.0 Hypertensive heart disease with heart failure; Z95.5 Presence of coronary angioplasty implant and graft; Z90.49 Acquired absence of other specified parts of digestive tract; Z88.1 Allergy status to other antibiotic agents; Z91.09 Other allergy status, other than to drugs and biological substances; Z79.01 Long term (current) use of anticoagulants; Z95.810 Presence of automatic (implantable) cardiac defibrillator; Z79.82 Long term (current) use of aspirin; Z79.899 Other long term (current) drug therapy
CPT/HCPCS: 36415; 51701; 70450; 71045; 80048; 80053; 80076; 81001; 82140; 82550; 83605; 83690; 83880; 84484; 85025; 86140; 87040; 87086; 93005; 93306; 94760; 96365; 96366; 96375; J0692; J0696; J1940; J3370-JW; J3490; J7512; U0002